=== PATIENT | male | born 1950 ===

== ENCOUNTER 2017-02-24 13:35 | Inpatient (IN) | payer MEDICARE, OTHER ==
[2017-02-24 14:14] VITALS: BMI 21.1
[2017-02-24] MEDS ORDERED: Sodium Chloride 0.9% 1,000 ML IV STA (14:41)
--- NOTE | 2017-02-24 14:49 | ED PDOC ---
Arrival/HPI - General Historian: Patient - History of Present Illness Time/Duration: 4-6 hours Symptom Onset: Gradual Symptom Course: Worsening Activities at Onset: Light Context: Home <Erick Hargrove - Last Filed: 02/24/17 18:34> <Truong,Prem - Last Filed: 02/24/17 21:51> - General Chief Complaint: Abdominal Pain Time Seen by Provider: 02/24/17 14:31 - History of Present Illness Narrative History of Present Illness (Text): 02/24/17 14:31 Antonio Ayers is a 66 year old male, whose past medical history includes hypertension, hyperlipidemia, and gastric reflux, who presents to the emergency department complaining of 1 week duration of worsening LLQ abdominal pain today. Patient describes his pain to be "achey," sharp and non-radiating. Patient also complains of experiencing constipation. Patient notes that his last bowel movement was 2 days ago. Patient notes that he has chronic lower back pain but it is not pertinent. Patient denies any rectal bleeding, testicular pain, urinary complaints, or any other complaints at this time. PMD: Dr. Nakia Denson (Erick Hargrove) Past Medical History - Provider Review Nursing Documentation Reviewed: Yes - Infectious Disease Hx of Infectious Diseases: None - Tetanus Immunization Tetanus Immunization: Unknown - Cardiac Hx Hypertension: Yes Hx Pacemaker: No - Neurological Hx Paralysis: No - Hematological/Oncological Hx Blood Transfusions: No Hx Blood Transfusion Reaction: No - Musculoskeletal/Rheumatological Hx Musculoskeletal Disorders: Yes - Gastrointestinal Hx Gastroesophageal Reflux: Yes - Psychiatric Hx Emotional Abuse: No Hx Physical Abuse: No Hx Substance Use: No - Past Surgical History Past Surgical History: No Previous - Anesthesia Hx Anesthesia: No Hx Anesthesia Reactions: No Hx Malignant Hyperthermia: No - Suicidal Assessment Feels Threatened In Home Enviroment: No <Erick Hargrove - Last Filed: 02/24/17 18:34> Family/Social History - Physician Review Nursing Documentation Reviewed: Yes Family/Social History: No Known Family HX Smoking Status: Light Smoker < 10 Cigarettes Daily Hx Alcohol Use: Yes (OCCASIONALLY) Frequency of alcohol use: Socially Hx Substance Use: No Hx Substance Use Treatment: No <Erick Hargrove - Last Filed: 02/24/17 18:34> Allergies/Home Meds <Erick Hargrove - Last Filed: 02/24/17 18:34> <Truong,Prem - Last Filed: 02/24/17 21:51> Allergies/Adverse Reactions: Allergies aspirin Adverse Reaction (Mild, Verified 04/24/16 11:08) NAUSEA Home Medications: Home Meds Medication Instructions Recorded Confirmed Omeprazole 40 mg PO DAILY 05/16/16 02/24/17 amLODIPine [Norvasc] 10 mg PO DAILY 08/22/16 02/24/17 Atorvastatin [Lipitor] 1 tab PO HS 02/24/17 02/24/17 Review of Systems - Physician Review All systems were reviewed & negative as marked: Yes - Review of Systems Constitutional: absent: Fevers, Night Sweats Eyes: absent: Vision Changes ENT: absent: Hearing Changes Respiratory: absent: SOB Cardiovascular: absent: Chest Pain Gastrointestinal: Abdominal Pain (LLQ) Genitourinary Male: absent: Dysuria Musculoskeletal: absent: Arthralgias Skin: absent: Rash Neurological: absent: Headache, Dizziness <Beena,Erick L - Last Filed: 02/24/17 18:34> Physical Exam Vital Signs Reviewed: Yes Temperature: Afebrile Blood Pressure: Hypertensive Pulse: Regular Respiratory Rate: Normal Appearance: Positive for: Well-Appearing, Non-Toxic, Comfortable Pain Distress: None Mental Status: Positive for: Alert and Oriented X 3 - Systems Exam Head: Present: Atraumatic, Normocephalic Pupils: Present: PERRL Extroacular Muscles: Present: EOMI Conjunctiva: Present: Normal Mouth: Present: Moist Mucous Membranes Neck: Present: Normal Range of Motion Respiratory/Chest: Present: Clear to Auscultation, Good Air Exchange. No: Respiratory Distress, Accessory Muscle Use Cardiovascular: Present: Regular Rate and Rhythm, Normal S1, S2. No: Murmurs Abdomen: Present: Tenderness (LLQ tenderness with guarding), Guarding. No: Rebound Back: Present: Normal Inspection Upper Extremity: Present: Normal Inspection. No: Cyanosis, Edema Lower Extremity: Present: Normal Inspection. No: Edema Neurological: Present: GCS=15, CN II-XII Intact, Speech Normal Skin: Present: Warm, Dry, Normal Color. No: Rashes Psychiatric: Present: Alert, Oriented x 3, Normal Insight, Normal Concentration <Beena,Erick L - Last Filed: 02/24/17 18:34> Medical Decision Making - Lab Interpretations I have reviewed the lab results: Yes <Erick Hargrove - Last Filed: 02/24/17 18:34> ED OBSERVATION Date of observation admission: 02/24/17 Time of observation admission: 14:45 <Erick Hargrove - Last Filed: 02/24/17 18:34> <Prem Guerin - Last Filed: 02/24/17 21:51> - Observation admission statement Patient is being placed in observation because:: Abdominal Pain (Erick Hargrove) - Goals of Observation Goals of observation are:: Continual reevaluation until symptoms improved or resolved. (Erick Hargrove) - Progress Note Progress Note: 02/24/17 14:51 Impression: 66 year old male complaining of 1 week duration of worsening LLQ abdominal pain today. Differential Diagnosis included but are not limited to: r/o Diverticulitis vs. Enteritis Plan: -- Abdomen and Pelvis CT with contrast -- Urinalysis -- Labs -- Toradol and IV fluids -- Reassess and disposition Prior Visits: Notes and results from previous visits were reviewed. Patient last seen in the ED on 10/01/13 for LLQ abdominal pain for a few days. Patient was discharged home. Progress Notes: 02/24/17 18:19 - CT was changed to PO contrast only. Patient still has pain. Morphine 2mg IV ordered. 02/24/17 19:00 Case to sign out to Dr. Guerin to f/u CT, reevaluate and disposition. (Erick Hargrove) 02/24/17 21:36 Case was endorsed from pending CT scan.Results noted significant for Diverticulitis CT Abd/Pelvis IMPRESSION: 1. There is slight wall thickening noted involving the descending/sigmoid colon suggestive of diverticulitis. There is slight pericolonic infiltration of fat. 2. Pancreas evaluation is limited. The distal pancreatic duct is slightly dilated Case was d/w .Request pt. 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 ( Prem Guerin) - Scribe Statement The provider has reviewed the documentation as recorded by the Scribe <Erick Hargrove - Last Filed: 02/24/17 18:34> <TruongPrem - Last Filed: 02/24/17 21:51> - Scribe Statement Nichole Leung Provider Scribe Attestation: All medical record entries made by the Scribe were at my direction and personally dictated by me. I have reviewed the chart and agree that the record accurately reflects my personal performance of the history, physical exam, medical decision making, and the department course for this patient. I have also personally directed, reviewed, and agree with the discharge instructions and disposition. (Erick Hargrove) Disposition/Present on Arrival - Present on Arrival Any Indicators Present on Arrival: No History of DVT/PE: No History of Uncontrolled Diabetes: No Urinary Catheter: No History of Decub. Ulcer: No History Surgical Site Infection Following: None - Disposition Have Diagnosis and Disposition been Completed?: No Disposition Time: 14:45 <Erick Hargrove - Last Filed: 02/24/17 18:34> - Present on Arrival Any Indicators Present on Arrival: No History of DVT/PE: No History of Uncontrolled Diabetes: No Urinary Catheter: No History of Decub. Ulcer: No History Surgical Site Infection Following: None - Disposition Have Diagnosis and Disposition been Completed?: Yes Disposition Time: 21:50 Patient Plan: Admission <Prem Guerin - Last Filed: 02/24/17 21:51> - Disposition Diagnosis: Abdominal pain, Diverticulitis Disposition: HOSPITALIZED Patient Problems: Current Active Problems Problem Status Onset Abdominal pain Acute Condition: STABLE
[2017-02-24 15:42] LABS: BASO # 0.02 K/mm3 (0.0-2.0); BASO % 0.3 % (0.0-3.0); EOS # 0.1 (0.0-0.7); EOS % 1.8 % (1.5-5.0); GRAN # 4.89 (1.4-6.5); GRAN % 68.9 % (50.0-68.0); HEMATOCRIT 31.8 % (42.0-52.0); LYMPH # 1.6 (1.2-3.4); LYMPH % 23.1 % (22.0-35.0); MEAN CELL VOLUME 88.3 fl (80.0-105.0); MEAN CORPUSCULAR HEMOGLOBIN 30.3 pg (25.0-35.0); MEAN CORPUSCULAR HGB CONC 34.3 g/dl (31.0-37.0); MEAN PLATELET VOLUME 10.2 fl (7.0-11.0); MONO # 0.4 (0.1-0.6); MONO % 5.9 % (1.0-6.0); WHITE BLOOD COUNT 7.1 10^3/ul (4.5-11.0)
[2017-02-24 15:47] LABS: URINE APPEARANCE SL CLOUDY (CLEAR); URINE BILIRUBIN NEGATIVE (NEGATIVE); URINE BLOOD TRACE-LYSED (NEGATIVE); URINE COLOR YELLOW (YELLOW); URINE GLUCOSE (UA) NEGATIVE (NEGATIVE); URINE KETONE NEGATIVE (NEGATIVE); URINE LEUKOCYTE ESTERASE NEGATIVE Leu/uL (NEGATIVE); URINE PROTEIN 30 mg/dL (<30 mg/dL); URINE UROBILINOGEN 0.2 E.U./dL (<1 E.U./dL)
[2017-02-24 15:49] LABS: URINE EPITHELIAL CELLS 0 - 2 /hpf (0-5); URINE RBC 0 - 2 /hpf (0-2); URINE WBC 0 - 2 /hpf (0-6)
[2017-02-24 15:58] LABS: ALB/GLOB RATIO 1.3 (1.1-1.8); BILIRUBIN,TOTAL 0.3 mg/dL (0.2-1.3); CALCIUM 9.3 mg/dL (8.4-10.5); TOTAL PROTEIN 6.9 g/dL (5.8-8.3)
[2017-02-24] MEDS ORDERED: Iohexol 240 (50 ml) ONE (17:11)
[2017-02-24] MEDS ORDERED: Morphine 2 mg/ml ISec IVP STA (18:18)
[2017-02-24] MEDS ORDERED: levoFLOXacin 750 mg in D5W 150 ML BAG IVPB ONE (21:41)
[2017-02-24] MEDS ORDERED: metroNIDAZOLE IV 500 mg/100 ml 500 MG/100 ML BAG IVPB STA (21:42)
--- NOTE | 2017-02-24 23:40 | CP.PCM.HP ---
<LUDY HARPER - Last Filed: 02/25/17 00:54> History of Present Illness - History of Present Illness History of Present Illness: Mr. Ayers is a 66 yo M with PMH gastric ulcers, GERD, HTN, HLD, CKD ( pt was told by MD once before but he doesn't f/u), psoriasis, arthritis, and BPH who presented to ED c/o LLQ abdominal pain x1 week. Also states that he has been constipated for 2 days (last BM this morning) and that he had 2 episodes of n/v 2 days ago. Pt states that he has had chronic issues with acid reflux and that he has had 2 EGD's in the past with Dr. Vasquez. States that this is the first time he has had this abdominal pain, which he describes as sharp, constant, non-radiating and rated it 8-9/10 at its worst and 7/10 currently; pain is not a/w food intake and is not improved with PPI medication. Denies fevers, chills, diarrhea, weakness. Pt states that he normally has 3 bowel movements a day but that he sometimes gets constipated. He had a colonoscopy 2 years ago with a polyp removal, and a procedure for hemorrhoid 2 years ago that was not successful and that he has pain with bowel movements. Denies any hematochezia or hematemesis. States that he has baseline chest pain a/w GERD and that his medication helps alleviate it. Pt also states that he feels incomplete bladder emptying and that he needs to urinate quite often, sometimes waking up 5 times a night to urinate. 12 point review of systems is otherwise negative except as mentioned above. PMH: as above PSH: hemorrhoidectomy Meds: Omeprazole 20mg, Norvasc 5mg, Atorvastatin 20mg Allergies: ASA (GI issues) SHx: 10pkyr smoker, occasional ETOH, denies drug use, lives with , retired FHx: Mom: HTN, Dad: none PMD: Sheldon Doherty Present on Admission - Present on Admission Any Indicators Present on Admission: No History of DVT/PE: No History of Uncontrolled Diabetes: No Review of Systems - Review of Systems All systems: reviewed and no additional remarkable complaints except (as per HPI ) Past Patient History - Infectious Disease Hx of Infectious Diseases: None - Tetanus Immunizations Tetanus Immunization: Unknown - Past Medical History & Family History Past Medical History?: Yes - Past Social History Smoking Status: Light Smoker < 10 Cigarettes Daily Alcohol: Occasional Drugs: Denies - CARDIAC Hx Cardiac Disorders: Yes Hx Hypertension: Yes Hx Pacemaker: No - PULMONARY Hx Respiratory Disorders: No - NEUROLOGICAL Hx Neurological Disorder: No Hx Paralysis: No - RENAL Hx Chronic Kidney Disease: Yes - HEMATOLOGICAL/ONCOLOGICAL Hx Blood Transfusions: No Hx Blood Transfusion Reaction: No - INTEGUMENTARY Hx Psoriasis: Yes - MUSCULOSKELETAL/RHEUMATOLOGICAL Hx Musculoskeletal Disorders: Yes Hx Arthritis: Yes - GASTROINTESTINAL Hx Gastrointestinal Disorders: Yes Hx Gastroesophageal Reflux: Yes Hx Hemorrhoids: Yes Hx Ulcer: Yes - GENITOURINARY/GYNECOLOGICAL Hx Genitourinary Disorders: Yes Hx Prostate Problems: Yes - PSYCHIATRIC Hx Emotional Abuse: No Hx Physical Abuse: No Hx Substance Use: No - ANESTHESIA Hx Anesthesia: No Hx Anesthesia Reactions: No Hx Malignant Hyperthermia: No Meds Allergies/Adverse Reactions: Allergies Allergy/AdvReac Type Severity Reaction Status Date / Time aspirin AdvReac Mild NAUSEA Verified 04/24/16 11:08 Physical Exam - Constitutional Appears: Well, Non-toxic, No Acute Distress - Head Exam Head Exam: ATRAUMATIC, NORMAL INSPECTION, NORMOCEPHALIC - Eye Exam Eye Exam: EOMI, Normal appearance, PERRL - ENT Exam ENT Exam: Mucous Membranes Moist - Neck Exam Neck exam: Positive for: Full Rom, Normal Inspection - Respiratory Exam Respiratory Exam: Clear to Auscultation Bilateral, NORMAL BREATHING PATTERN. absent: Accessory Muscle Use, Rales, Rhonchi, Wheezes, Respiratory Distress - Cardiovascular Exam Cardiovascular Exam: RRR, +S1, +S2. absent: Gallop, JVD, Rubs - GI/Abdominal Exam GI & Abdominal Exam: Hyperactive Bowel Sounds, Soft, Tenderness (LLQ and suprapubic). absent: Distended, Firm, Guarding, Rebound - Rectal Exam Rectal Exam: Hemorrhoids. absent: Black Stool, Bloody Stool, Fecal Impaction Additional comments: no stool or blood noted on LUIS, small hemorrhoid noted - Extremities Exam Extremities exam: Positive for: full ROM, normal inspection. Negative for: calf tenderness, pedal edema, tenderness - Back Exam Back exam: NORMAL INSPECTION. absent: tenderness - Neurological Exam Neurological exam: Alert, Oriented x3 - Psychiatric Exam Psychiatric exam: Normal Affect, Normal Mood - Skin Skin Exam: Normal Color, Warm Additional comments: psoriatic scaly lesions noted on hands sun-exposure burn/rash noted on supra-clavicular region Results - Vital Signs Recent Vital Signs: Last Vital Signs Temp 98.7 F 02/24/17 14:13 Pulse 63 02/24/17 22:35 Resp 16 02/24/17 22:35 BP 135/66 02/24/17 22:35 Pulse Ox 98 02/24/17 22:35 - Labs Result Diagrams: 02/24/17 15:26 02/24/17 15:26 Assessment & Plan - Assessment and Plan (Free Text) Assessment: Mr. yAers is a 66yo M with PMH gastric ulcers, GERD, HTN, HLD, CKD, psoriasis, arthritis, and BPH who presented to ED c/o LLQ abdominal pain x1 week , constipation for 2 days and n/v 2 days ago Plan: 1. LLQ Pain likely 2/2 divertiulitis vs constipation - Pt transferred to med-surg floor for monitoring - CT abd and pelvis w/ PO contrast showed slight wall thickening noted involving the descending/sigmoid colon suggestive of diverticulitis. There is slight pericolonic infiltration of fat. - pt afebrile and no leukocytosis - pain mgmt: received Toradol and Morphine in ED; cont Motrin PRN - GI consulted, recs appreciated - surgery consulted, recs appreciated - NS @ 150cc - received Levaquin and Flagyl in ED; cont Flagyl and Rocephin - pt kept NPO, advance to liquids AM if tolerated 2. Suprapubic pain likely 2/2 urinary retention 2/2 BPH - bladder scan ordered - urinary straight cath PRN ordered - start Flomax 3. HTN - cont home dose of Norvasc - monitor vitals 4. HLD - lipid panel ordered - cont home dose of Atorvastatin 5. CKD - Cr 1.8 (stable baseline for pt since 2013) - consider renal consult 6. Anemia likely 2/2 chronic dz 2/2 CKD - Hgb 10.9 (similar to baseline) - Heme occult blood ordered NPO PTX/SCDs Patient was evaluated and d/w attending, Dr. Nilson Harper PGY1 - Date & Time Date: 02/25/17 Time: 00:00 <Barry Devine - Last Filed: 02/25/17 06:01> Results - Vital Signs Recent Vital Signs: Last Vital Signs Temp 98.0 F 02/25/17 01:15 Pulse 65 02/25/17 01:15 Resp 20 02/25/17 01:15 BP 121/63 02/25/17 01:15 Pulse Ox 98 02/24/17 22:35 - Labs Result Diagrams: 02/24/17 15:26 02/24/17 15:26 Attending/Attestation - Attestation I have personally seen and examined this patient.: Yes I have fully participated in the care of the patient.: Yes I have reviewed all pertinent clinical information: Yes Notes (Text): 02/25/17 05:49 Patient was seen when he was in bed # 371-02. Agree with history , physical examination, assessment and plan. Following are impressions. LLQ pain. Acute diverticulitis.. Anemia. Renal insufficiency. Allergy to ASA. HTN. HLD. GERD. Constipation. Hx of Elevated PSA. Suprapubic pain. Hx of hemorrhoidectomy. Smoker. Uses alcohol occasionally. Hx epistaxis. Hx dry eyes. Hx refraction error-Bifocal eye glasses. Hx tinitus. Hx Arthritis. Hx BPH. Hx headaches.
[2017-02-25] MEDS ORDERED: levoFLOXacin 750 mg in D5W 750 MG/150 ML BAG IVPB STA (00:05)
[2017-02-25] MEDS: Pantoprazole 40 mg EC Tab PO SCH ×2 (05:45→17:52)
[2017-02-25] MEDS: metroNIDAZOLE IV 500 mg/100 ml 500 MG/100 ML BAG IVPB SCH ×3 (05:47→22:04)
--- NOTE | 2017-02-25 06:07 | CP.PCM.CON ---
<Paradise Garcia - Last Filed: 02/25/17 06:49> History of Present Illness - History of Present Illness History of Present Illness: General Surgery Dr. Archibald 66 y/o M w/ PMHx of HTN, CKD, HLD presents to the ED c/o LLQ abd pain x1wk. Pt reports N/V x couple of weeks, NBNB, with LLQ pain worsening over the last 1- 2weeks. Pain nonradiating, made worse w/ BM. Pt denies recent travel or sick contacts. Pt reports decreased appetite and 10lb weight loss over the last couple of months. Pt admits to recent constipation, denies diarrhea. Pt denies urinary frequency, hesitancy, urgency, dysuria. Pt denies MONAE, lightheadedness, dizziness, F/C, CP, SOB, numbness/tingling. PMHx: see above, GERD, BPH, Psoriasis Meds: reviewed in chart Allergies: ASA PSHx: hemorrhoidectomy SHx: 10py smoker, occasional ETOH, denies drug use, FHx: noncontributory Review of Systems - Review of Systems All systems: reviewed and no additional remarkable complaints except (see HPI) Past Patient History - Infectious Disease Hx of Infectious Diseases: None - Tetanus Immunizations Tetanus Immunization: Unknown - Past Medical History & Family History Past Medical History?: Yes - Past Social History Smoking Status: Light Smoker < 10 Cigarettes Daily - CARDIAC Hx Cardiac Disorders: Yes Hx Hypertension: Yes Hx Pacemaker: No - PULMONARY Hx Respiratory Disorders: No - NEUROLOGICAL Hx Neurological Disorder: No - RENAL Hx Chronic Kidney Disease: No - HEMATOLOGICAL/ONCOLOGICAL Hx Blood Transfusions: No Hx Blood Transfusion Reaction: No - INTEGUMENTARY Hx Psoriasis: Yes - MUSCULOSKELETAL/RHEUMATOLOGICAL Hx Falls: No - GASTROINTESTINAL Hx Gastrointestinal Disorders: Yes Hx Gastroesophageal Reflux: Yes Hx Ulcer: Yes - GENITOURINARY/GYNECOLOGICAL Hx Genitourinary Disorders: Yes Hx Prostate Problems: Yes - PSYCHIATRIC Hx Substance Use: No - SURGICAL HISTORY Hx Surgeries: Yes - ANESTHESIA Hx Anesthesia: No Hx Anesthesia Reactions: No Hx Malignant Hyperthermia: No Meds Allergies/Adverse Reactions: Allergies Allergy/AdvReac Type Severity Reaction Status Date / Time aspirin AdvReac Mild NAUSEA Verified 04/24/16 11:08 - Medications Medications: Current Medications Amlodipine Besylate (Norvasc) 10 mg PO DAILY [facility] Atorvastatin Calcium (Lipitor) 20 mg PO HS [facility] Last Admin: 02/25/17 00:33 Dose: 20 mg Sodium Chloride (Sodium Chloride 0.9%) 1,000 mls @ 150 mls/hr IV .Q6H40M [facility] Last Admin: 02/25/17 00:00 Dose: 150 mls/hr Metronidazole (Flagyl) 500 mg in 100 mls @ 100 mls/hr IVPB Q8 [facility] PRN Reason: Protocol Last Admin: 02/25/17 05:47 Dose: 100 mls/hr Ceftriaxone Sodium (Rocephin 1 Gram Ivpb) 1 gm in 100 mls @ 100 mls/hr IVPB DAILY [facility] PRN Reason: Protocol Pantoprazole Sodium (Protonix Ec Tab) 40 mg PO 0600,1600 [facility] Last Admin: 02/25/17 05:45 Dose: 40 mg Pneumococcal Polyvalent Vaccine (Pneumovax 23 Vaccine) 0.5 ml IM .ONCE ONE Stop: 02/27/17 10:01 Tamsulosin HCl (Flomax) 0.4 mg PO DAILY [facility] Physical Exam - Constitutional Appears: Non-toxic, No Acute Distress - Head Exam Head Exam: NORMAL INSPECTION - Eye Exam Eye Exam: Normal appearance - ENT Exam ENT Exam: Mucous Membranes Moist - Respiratory Exam Respiratory Exam: NORMAL BREATHING PATTERN. absent: Accessory Muscle Use, Respiratory Distress - Cardiovascular Exam Cardiovascular Exam: REGULAR RHYTHM. absent: Bradycardia, Tachycardia - GI/Abdominal Exam GI & Abdominal Exam: Guarding (voluntary), Soft, Tenderness (TTP LLQ>suprapubic) . absent: Distended, Firm, Rebound, Rigid - Extremities Exam Extremities exam: Positive for: normal inspection - Neurological Exam Neurological exam: Alert, Oriented x3 - Psychiatric Exam Psychiatric exam: Normal Affect, Normal Mood - Skin Skin Exam: Dry, Intact, Normal Color, Warm Results - Vital Signs Recent Vital Signs: Last Vital Signs Temp 98.0 F 02/25/17 01:15 Pulse 65 02/25/17 01:15 Resp 20 02/25/17 01:15 BP 121/63 02/25/17 01:15 Pulse Ox 98 02/24/17 22:35 - Labs Result Diagrams: 02/24/17 15:26 02/24/17 15:26 - Imaging and Cardiology CT scan - abdomen Status: Image reviewed by me, Report reviewed by me Assessment & Plan - Assessment and Plan (Free Text) Assessment: 66 y/o M w/ diverticulitis - NPO, IVF - pain management - anti-emetic - GI consult --> known pt of Dr. Vasquez - cont IV abx - cont conservative medical management Pt discussed w/ Dr. Dragan Garcia DO PGY2 <Elfego Archibald - Last Filed: 02/26/17 19:21> Meds - Medications Medications: Current Medications Acetaminophen (Tylenol 325mg Tab) 650 mg PO Q6H PRN PRN Reason: Pain, moderate (4-7) Last Admin: 02/26/17 10:08 Dose: 650 mg Amlodipine Besylate (Norvasc) 10 mg PO DAILY [facility] Last Admin: 02/26/17 09:05 Dose: 10 mg Atorvastatin Calcium (Lipitor) 20 mg PO HS [facility] Last Admin: 02/25/17 22:04 Dose: 20 mg Sodium Chloride (Sodium Chloride 0.9%) 1,000 mls @ 150 mls/hr IV .Q6H40M [facility] Last Admin: 02/26/17 08:05 Dose: 150 mls/hr Metronidazole (Flagyl) 500 mg in 100 mls @ 100 mls/hr IVPB Q8 [facility] PRN Reason: Protocol Last Admin: 02/26/17 14:21 Dose: 100 mls/hr Ceftriaxone Sodium (Rocephin 1 Gram Ivpb) 1 gm in 100 mls @ 100 mls/hr IVPB DAILY [facility] PRN Reason: Protocol Last Admin: 02/26/17 09:05 Dose: 100 mls/hr Pantoprazole Sodium (Protonix Ec Tab) 40 mg PO 0600,1600 [facility] Last Admin: 02/26/17 16:26 Dose: 40 mg Pneumococcal Polyvalent Vaccine (Pneumovax 23 Vaccine) 0.5 ml IM .ONCE ONE Stop: 02/27/17 10:01 Polyethylene Glycol (Miralax) 17 gm PO BID [facility] Last Admin: 02/26/17 17:23 Dose: 17 gm Tamsulosin HCl (Flomax) 0.4 mg PO DAILY [facility] Last Admin: 02/26/17 09:05 Dose: 0.4 mg Results - Vital Signs Recent Vital Signs: Last Vital Signs Temp 98.6 F 02/26/17 16:00 Pulse 72 02/26/17 16:00 Resp 18 02/26/17 16:00 BP 121/67 02/26/17 16:00 Pulse Ox 98 02/26/17 16:00 - Labs Result Diagrams: 02/26/17 09:30 02/26/17 09:30 Labs: Laboratory Results - last 24 hr 02/26/17 02/26/17 09:30 09:30 WBC 5.2 RBC 3.52 Hgb 10.3 L Hct 31.3 L MCV 88.9 MCH 29.3 MCHC 32.9 RDW 13.1 Plt Count 184 MPV 10.1 Gran % 71.0 H Lymph % (Auto) 21.7 L [place] % (Auto) 5.0 Eos % (Auto) 2.1 Baso % (Auto) 0.2 Gran # 3.67 Lymph # 1.1 L [place] # 0.3 Eos # 0.1 Baso # 0.01 Sodium 139 Potassium 4.7 Chloride 107 Carbon Dioxide 23 Anion Gap 14 BUN 14 Creatinine 1.5 H Est GFR ( Amer) 56 Est GFR (Non-Af Amer) 47 Random Glucose 191 H Calcium 9.2 Total Bilirubin 0.4 AST 25 ALT 32 Alkaline Phosphatase 106 Total Protein 6.2 Albumin 3.5 Globulin 2.8 Albumin/Globulin Ratio 1.3 Attending/Attestation - Attestation I have personally seen and examined this patient.: Yes I have fully participated in the care of the patient.: Yes I have reviewed all pertinent clinical information: Yes Notes (Text): 02/26/17 19:20 Pt was seen and examined at bedside Agree with above note and assessment Pt with Diverticulitis Labs and radiology reviewed Clear liquid diet CI consult C/w IV antibiotics Plan d.w pt in detail Risk and benefit explained in detail.
[2017-02-25 07:41] LABS: BASO # 0.02 K/mm3 (0.0-2.0); BASO % 0.4 % (0.0-3.0); EOS # 0.2 (0.0-0.7); EOS % 3.7 % (1.5-5.0); GRAN # 3.59 (1.4-6.5); GRAN % 63.1 % (50.0-68.0); HEMATOCRIT 31.9 % (42.0-52.0); LYMPH # 1.4 (1.2-3.4); LYMPH % 24.5 % (22.0-35.0); MEAN CELL VOLUME 87.9 fl (80.0-105.0); MEAN CORPUSCULAR HEMOGLOBIN 30.3 pg (25.0-35.0); MEAN CORPUSCULAR HGB CONC 34.5 g/dl (31.0-37.0); MEAN PLATELET VOLUME 10.2 fl (7.0-11.0); MONO # 0.5 (0.1-0.6); MONO % 8.3 % (1.0-6.0); RED CELL DISTRIBUTION WIDTH 13.2 % (11.5-14.5); WHITE BLOOD COUNT 5.7 10^3/ul (4.5-11.0)
--- NOTE | 2017-02-25 07:50 | CT ---
PROCEDURE: CT Abdomen and Pelvis with contrast HISTORY: Left lower quadrant abdominal pain r/o diverticulitis COMPARISON: 09/30/2013. TECHNIQUE: CT scan of the abdomen and pelvis was performed without administration of intravenous contrast. Oral contrast was not administered. Coronal and sagittal reformatted images were obtained. Radiation dose: Total exam DLP = 246.41 mGy-cm. This CT exam was performed using one or more of the following dose reduction techniques: Automated exposure control, adjustment of the mA and/or kV according to patient size, and/or use of iterative reconstruction technique. FINDINGS: LOWER THORAX: There is linear atelectasis/ scarring in the lung bases. LIVER: The liver is normal in size. There are few punctate calcifications in the liver. No gross lesion or ductal dilatation. GALLBLADDER AND BILE DUCTS: There are no calcified gallstones. There is a probable calcification in the fundus of the gallbladder. PANCREAS: The pancreas is normal in size. No ductal dilatation or calcifications. SPLEEN: The spleen is normal in size. ADRENALS: Both adrenal glands are normal in size without discrete nodule. KIDNEYS AND URETERS: The right kidney is small in size. There is age 5 mm high attenuation lesion in the right upper pole stable since the prior examination and likely a hemorrhagic cyst. There are simple cysts in both kidneys, the largest in the left upper pole measures 4.6 cm. No hydronephrosis or nephrolithiasis. VASCULATURE: There are early atherosclerotic aortoiliac calcifications. No aortic aneurysm. BOWEL: The small bowel loops are normal in caliber. There is sigmoid and left colonic diverticulosis. There is apparent mild mural thickening in the distal descending and proximal sigmoid colon with mild pericolonic inflammatory changes. . No bowel dilatation or obstruction. APPENDIX: Normal appendix. PERITONEUM: No free fluid. No free air. LYMPH NODES: No enlarged lymph nodes. BLADDER: Grossly normal in appearance. REPRODUCTIVE: The prostate gland is normal in size. BONES: No acute fracture. Diffuse bone demineralization and mild multilevel degenerative disc disease. OTHER FINDINGS: None. IMPRESSION: Findings are most compatible with acute segmental diverticulitis involving the distal descending and proximal sigmoid colon. No perforation or abscess. A preliminary report was provided by [employer].
[2017-02-25 07:54] LABS: ALB/GLOB RATIO 1.2 (1.1-1.8); BILIRUBIN,TOTAL 0.3 mg/dL (0.2-1.3); TOTAL PROTEIN 6.5 g/dL (5.8-8.3)
[2017-02-25] MEDS: cefTRIAXone 1 gm 1 GM/100 ML BAG IVPB SCH (09:42)
[2017-02-25] MEDS: Sodium Chloride 0.9% 1,000 ML IV SCH ×2 (09:43)
--- NOTE | 2017-02-25 12:07 | CP.PCM.CON ---
<Shanon Rea - Last Filed: 02/25/17 12:05> History of Present Illness - History of Present Illness History of Present Illness: Seen and examined at the bedside earlier today. The chart was reviewed. Request for consultation is for diverticulitis.. HPI: This is a 66-year-old male with a past medical history of gastric ulcers, GERD, colon polyps, hypertension, and chronic kidney disease came to the emergency room with complaints of left lower quadrant abdominal pain 5 days. The patient also complained of constipation 2 days. Patient states that he normally moves his bowels regular. Prior to this patient complained of vomiting. He denies any contributing factors such as dietary intake, sick contacts. Patient reports that abdominal pain as being sharp, constant but nonradiating. His last bowel movement was yesterday but small amount, denies any melena or bright red blood per rectum. His last colonoscopy was August 2013 found to have a hyperplastic rectal polyp. He did have an endoscopy in July 2016 found to have this was for history of chronic ulcer found to have gastritis and nodularity of the gastric body. His gastric biopsies were negative for H. pylori. On admission he had a CT scan of abdomen and pelvis with only IV contrast and found to have distal descending and proximal sigmoid thickening suggestive of diverticulitis no abscess or perforation. This morning the patient states his abdominal pain has improved but attempting to have a BM but unsuccessful. He also reports that he lost at least 11 pounds in a few months. Past medical history: As stated above gastric ulcers, GERD, colon polyps, hypertension, hyperlipidemia, chronic kidney disease, arthritis, BPH, and psoriasis. Surgical history: EGD was 2016, colonoscopy was August/2013, hemorrhoidectomy Allergies: Aspirin Medications: Reviewed as per MAR Social history: Positive for smoking, occasional EH, denies substance abuse. Family history noncontributory at this time Review of systems essentially positive finding see HPI Past Patient History - Infectious Disease Hx of Infectious Diseases: None - Tetanus Immunizations Tetanus Immunization: Unknown - Past Medical History & Family History Past Medical History?: Yes - Past Social History Smoking Status: Light Smoker < 10 Cigarettes Daily - CARDIAC Hx Cardiac Disorders: Yes Hx Hypertension: Yes Hx Pacemaker: No - PULMONARY Hx Respiratory Disorders: No - NEUROLOGICAL Hx Neurological Disorder: No - RENAL Hx Chronic Kidney Disease: No - HEMATOLOGICAL/ONCOLOGICAL Hx Blood Transfusions: No Hx Blood Transfusion Reaction: No - INTEGUMENTARY Hx Psoriasis: Yes - MUSCULOSKELETAL/RHEUMATOLOGICAL Hx Falls: No - GASTROINTESTINAL Hx Gastrointestinal Disorders: Yes Hx Gastroesophageal Reflux: Yes Hx Ulcer: Yes - GENITOURINARY/GYNECOLOGICAL Hx Genitourinary Disorders: Yes Hx Prostate Problems: Yes - PSYCHIATRIC Hx Substance Use: No - SURGICAL HISTORY Hx Surgeries: Yes - ANESTHESIA Hx Anesthesia: No Hx Anesthesia Reactions: No Hx Malignant Hyperthermia: No Meds Allergies/Adverse Reactions: Allergies Allergy/AdvReac Type Severity Reaction Status Date / Time aspirin AdvReac Mild NAUSEA Verified 04/24/16 11:08 - Medications Medications: Current Medications Amlodipine Besylate (Norvasc) 10 mg PO DAILY [facility] Last Admin: 02/25/17 09:42 Dose: 10 mg Atorvastatin Calcium (Lipitor) 20 mg PO HS [facility] Last Admin: 02/25/17 00:33 Dose: 20 mg Sodium Chloride (Sodium Chloride 0.9%) 1,000 mls @ 150 mls/hr IV .Q6H40M [facility] Last Admin: 02/25/17 09:43 Dose: 150 mls/hr Metronidazole (Flagyl) 500 mg in 100 mls @ 100 mls/hr IVPB Q8 [facility] PRN Reason: Protocol Last Admin: 02/25/17 05:47 Dose: 100 mls/hr Ceftriaxone Sodium (Rocephin 1 Gram Ivpb) 1 gm in 100 mls @ 100 mls/hr IVPB DAILY [facility] PRN Reason: Protocol Last Admin: 02/25/17 09:42 Dose: 100 mls/hr Pantoprazole Sodium (Protonix Ec Tab) 40 mg PO 0600,1600 [facility] Last Admin: 02/25/17 05:45 Dose: 40 mg Pneumococcal Polyvalent Vaccine (Pneumovax 23 Vaccine) 0.5 ml IM .ONCE ONE Stop: 02/27/17 10:01 Tamsulosin HCl (Flomax) 0.4 mg PO DAILY [facility] Last Admin: 02/25/17 09:42 Dose: 0.4 mg Physical Exam - Constitutional Appears: No Acute Distress - Head Exam Head Exam: NORMOCEPHALIC - Eye Exam Eye Exam: Normal appearance. absent: Scleral icterus - ENT Exam ENT Exam: Mucous Membranes Moist - Neck Exam Neck exam: Positive for: Normal Inspection - Respiratory Exam Respiratory Exam: Clear to Auscultation Bilateral, NORMAL BREATHING PATTERN. absent: Respiratory Distress - Cardiovascular Exam Cardiovascular Exam: +S1, +S2 - GI/Abdominal Exam GI & Abdominal Exam: Organomegaly, Soft, Tenderness (LLQ). absent: Distended, Guarding, Normal Bowel Sounds, Rebound - Extremities Exam Extremities exam: Positive for: pedal pulses present. Negative for: calf tenderness, pedal edema - Neurological Exam Neurological exam: Alert, Oriented x3 - Skin Skin Exam: Dry, Warm Results - Vital Signs Recent Vital Signs: Last Vital Signs Temp 98.2 F 02/25/17 08:24 Pulse 64 02/25/17 08:24 Resp 18 02/25/17 08:24 BP 116/64 02/25/17 09:42 Pulse Ox 98 02/25/17 08:24 - Labs Result Diagrams: 02/25/17 07:00 02/25/17 07:00 Labs: Laboratory Results - last 24 hr 02/25/17 02/25/17 07:00 07:00 WBC 5.7 RBC 3.63 Hgb 11.0 L Hct 31.9 L MCV 87.9 MCH 30.3 MCHC 34.5 RDW 13.2 Plt Count 179 MPV 10.2 Gran % 63.1 Lymph % (Auto) 24.5 [place] % (Auto) 8.3 H Eos % (Auto) 3.7 Baso % (Auto) 0.4 Gran # 3.59 Lymph # 1.4 [place] # 0.5 Eos # 0.2 Baso # 0.02 Sodium 142 Potassium 5.0 Chloride 111 H Carbon Dioxide 23 Anion Gap 13 BUN 21 Creatinine 1.6 H Est GFR ( Amer) 52 Est GFR (Non-Af Amer) 43 Random Glucose 86 Calcium 9.0 Total Bilirubin 0.3 AST 26 ALT 30 Alkaline Phosphatase 108 Total Protein 6.5 Albumin 3.6 Globulin 2.9 Albumin/Globulin Ratio 1.2 Triglycerides 82 Cholesterol 145 LDL Cholesterol Direct 78 HDL Cholesterol 45 Assessment & Plan - Assessment and Plan (Free Text) Assessment: Assessment: Acute diverticulitis History of colon polyp GERD Chronic kidney disease Hypertension BPH Plan: Continue IV antibiotics: rocephin & flagyl Start clear liquid diet, advanced as tolerated, will FU Continue PPI Monitor electrolytes Surgical evaluation May benefit from elective outpatient colonoscopy after resolution of diverticulitis 6-8 weeks. Follow up in outpatient office. Thank you for this consult and for allowing us to participate in your patient's care. Will make further recommendations based on clinical course. Seen and discussed with Dr. Vasquez. <Vicky Vasquez V - Last Filed: 02/26/17 00:41> Meds - Medications Medications: Current Medications Acetaminophen (Tylenol 325mg Tab) 650 mg PO Q6H PRN PRN Reason: Pain, moderate (4-7) Last Admin: 02/25/17 22:21 Dose: 650 mg Amlodipine Besylate (Norvasc) 10 mg PO DAILY [facility] Last Admin: 02/25/17 09:42 Dose: 10 mg Atorvastatin Calcium (Lipitor) 20 mg PO HS [facility] Last Admin: 02/25/17 22:04 Dose: 20 mg Sodium Chloride (Sodium Chloride 0.9%) 1,000 mls @ 150 mls/hr IV .Q6H40M [facility] Last Admin: 02/25/17 09:43 Dose: 150 mls/hr Metronidazole (Flagyl) 500 mg in 100 mls @ 100 mls/hr IVPB Q8 [facility] PRN Reason: Protocol Last Admin: 02/25/17 22:04 Dose: 100 mls/hr Ceftriaxone Sodium (Rocephin 1 Gram Ivpb) 1 gm in 100 mls @ 100 mls/hr IVPB DAILY [facility] PRN Reason: Protocol Last Admin: 02/25/17 09:42 Dose: 100 mls/hr Pantoprazole Sodium (Protonix Ec Tab) 40 mg PO 0600,1600 [facility] Last Admin: 02/25/17 17:52 Dose: 40 mg Pneumococcal Polyvalent Vaccine (Pneumovax 23 Vaccine) 0.5 ml IM .ONCE ONE Stop: 02/27/17 10:01 Tamsulosin HCl (Flomax) 0.4 mg PO DAILY [facility] Last Admin: 02/25/17 09:42 Dose: 0.4 mg Results - Vital Signs Recent Vital Signs: Last Vital Signs Temp 98.3 F 02/25/17 15:57 Pulse 66 02/25/17 15:57 Resp 20 02/25/17 15:57 BP 105/62 02/25/17 15:57 Pulse Ox 98 02/25/17 15:57 - Labs Result Diagrams: 02/25/17 07:00 02/25/17 07:00 Labs: Laboratory Results - last 24 hr 02/25/17 02/25/17 07:00 07:00 WBC 5.7 RBC 3.63 Hgb 11.0 L Hct 31.9 L MCV 87.9 MCH 30.3 MCHC 34.5 RDW 13.2 Plt Count 179 MPV 10.2 Gran % 63.1 Lymph % (Auto) 24.5 [place] % (Auto) 8.3 H Eos % (Auto) 3.7 Baso % (Auto) 0.4 Gran # 3.59 Lymph # 1.4 [place] # 0.5 Eos # 0.2 Baso # 0.02 Sodium 142 Potassium 5.0 Chloride 111 H Carbon Dioxide 23 Anion Gap 13 BUN 21 Creatinine 1.6 H Est GFR ( Amer) 52 Est GFR (Non-Af Amer) 43 Random Glucose 86 Calcium 9.0 Total Bilirubin 0.3 AST 26 ALT 30 Alkaline Phosphatase 108 Total Protein 6.5 Albumin 3.6 Globulin 2.9 Albumin/Globulin Ratio 1.2 Triglycerides 82 Cholesterol 145 LDL Cholesterol Direct 78 HDL Cholesterol 45 Attending/Attestation - Attestation I have personally seen and examined this patient.: Yes I have fully participated in the care of the patient.: Yes I have reviewed all pertinent clinical information: Yes Notes (Text): This patient was seen and evaluated earlier. This is an addendum to GI consultation report dictated by Shanon Padron APN. this patient with a history ofcolonic polyp, diverticulosis admitted with the constipation and abdominal pain mainly in the left side of the abdomen. CT scan was reviewed and shows a large amount of stool in the right colon and transverse colon area. There is a short segment oo mural thickening in the proximal sigmoid descending colon area with some inflammatory changes.. Multiple diverticula seen. On examination patient has minimal tenderness on deep palpation in the left lower quadrant area. There is no rebound or guarding. Impression Diverticulitis versus segmental colitis versus neoplasia Constipation. CT revealed a large amount of stool in the proximal colon would recommend A liquid diet and slowly and once diet 2. Continue the antibiotics completed 7-10 days 3. Start MiraLAX twice daily until he moves his bowels 4. Low residue diet 5. The elective colonoscopic evaluation The findings were discussed with the patient also patient's son was at bedside. Patient is due to have a colonoscopy as an outpatient. However we would to defer it for another 3-4 weeks advance the diet as patient is tolerating initially low residue diet and then change it to high-fiber diet for 3 weeks. Patient was advised to continue the MiraLAX on a when necessary basis to regulate his bowel the case was discussed with the resident
--- NOTE | 2017-02-25 15:35 | CP.PCM.PN ---
<Que Benz - Last Filed: 02/25/17 17:28> Subjective - Date & Time of Evaluation Date of Evaluation: 02/18/17 Time of Evaluation: 10:32 - Subjective Subjective: This is a 66 yr. old male seen at bedside resting comfortably. The patient reports feeling better however has yet to have a bowel movement today. The patient denies any nausea, vomiting, lightheadeness, dizziness, chest pain, shortness of breath, pain upon urination, sore throat, changes in vision, chills , cough or any other problems. Objective - Vital Signs/Intake and Output Vital Signs (last 24 hours): Temp Pulse Resp BP Pulse Ox 98.2 F 64 18 116/64 98 02/25/17 08:24 02/25/17 08:24 02/25/17 08:24 02/25/17 09:42 02/25/17 08:24 Intake and Output: 02/25/17 02/25/17 06:59 18:59 Intake Total 0 Balance 0 - Medications Medications: Current Medications Amlodipine Besylate (Norvasc) 10 mg PO DAILY [facility] Last Admin: 02/25/17 09:42 Dose: 10 mg Atorvastatin Calcium (Lipitor) 20 mg PO HS [facility] Last Admin: 02/25/17 00:33 Dose: 20 mg Sodium Chloride (Sodium Chloride 0.9%) 1,000 mls @ 150 mls/hr IV .Q6H40M [facility] Last Admin: 02/25/17 09:43 Dose: 150 mls/hr Metronidazole (Flagyl) 500 mg in 100 mls @ 100 mls/hr IVPB Q8 [facility] PRN Reason: Protocol Last Admin: 02/25/17 14:58 Dose: 100 mls/hr Ceftriaxone Sodium (Rocephin 1 Gram Ivpb) 1 gm in 100 mls @ 100 mls/hr IVPB DAILY [facility] PRN Reason: Protocol Last Admin: 02/25/17 09:42 Dose: 100 mls/hr Pantoprazole Sodium (Protonix Ec Tab) 40 mg PO 0600,1600 [facility] Last Admin: 02/25/17 05:45 Dose: 40 mg Pneumococcal Polyvalent Vaccine (Pneumovax 23 Vaccine) 0.5 ml IM .ONCE ONE Stop: 02/27/17 10:01 Tamsulosin HCl (Flomax) 0.4 mg PO DAILY [facility] Last Admin: 02/25/17 09:42 Dose: 0.4 mg - Labs Labs: 02/25/17 07:00 02/25/17 07:00 - Head Exam Head Exam: ATRAUMATIC, NORMOCEPHALIC - Eye Exam Eye Exam: EOMI, Normal appearance, PERRL. absent: Periorbital tenderness Pupil Exam: NORMAL ACCOMODATION, PERRL. absent: Miosis - ENT Exam ENT Exam: Mucous Membranes Moist, Normal Exam, Normal Oropharynx - Neck Exam Neck Exam: Full ROM, Normal Inspection - Respiratory Exam Respiratory Exam: Clear to Ausculation Bilateral, NORMAL BREATHING PATTERN. absent: Accessory Muscle Use, Chest Wall Tenderness, Decreased Breath Sounds, Prolonged Expiratory Phase - Cardiovascular Exam Cardiovascular Exam: REGULAR RHYTHM, +S1, +S2. absent: Bradycardia, Tachycardia - GI/Abdominal Exam GI & Abdominal Exam: Tenderness (Tenderness noted on the LLQ upon palpation.), Normal Bowel Sounds - Extremities Exam Extremities Exam: Full ROM, Normal Inspection - Psychiatric Exam Psychiatric exam: Normal Affect, Normal Mood - Skin Skin Exam: Dry, Intact. absent: Rash, Urticaria Assessment and Plan (1) Diverticulitis Assessment & Plan: C/w with IVF fluids Keep NPO. Re-evaluate to clear liquid diet tomorrow morning. Status: Acute (2) Abdominal pain Assessment & Plan: C/W Flagyl and Rocephin for the segmental diverticulitis. Spoke with Dr. Vasquez and he is now on a clear liquid diet and we will re- evaluate in the morning and discharge tomorrow if continued improvement, per Dr. Vasquez. C/w with IV fluids. Status: Acute - Assessment and Plan (Free Text) Assessment: HTN -C/W amlodipine HLD -C/W Lipitor <Dior MC,[place] - Last Filed: 03/01/17 10:26> Objective - Vital Signs/Intake and Output Vital Signs (last 24 hours): Temp Pulse Resp BP Pulse Ox 98.6 F 63 20 116/64 96 02/27/17 08:25 02/27/17 08:25 02/27/17 08:25 02/27/17 09:44 02/27/17 08:25 - Labs Labs: 02/27/17 05:50 02/27/17 05:50 Attending/Attestation - Attestation I have personally seen and examined this patient.: Yes I have fully participated in the care of the patient.: Yes I have reviewed all pertinent clinical information, including history, physical exam and plan: Yes Notes (Text): 03/01/17 10:23 Patient was seen and examined with emergency medical service manager. Agreed with resident assessment and plan. 66 M with sigmoid diverticulitis, He is tolerating clear liquid diet, still has left lower quadrant tenderness but abdominal pain is much more improved.We will advance to soft diet this evening, and will monitor.We will continue IV antibiotics.GI evaluation is appreciated. Management plan was discussed in detail with patient Education was provided.
[2017-02-26] MEDS: metroNIDAZOLE IV 500 mg/100 ml 500 MG/100 ML BAG IVPB SCH ×3 (06:27→21:06)
[2017-02-26] MEDS: Pantoprazole 40 mg EC Tab PO SCH ×2 (06:28→16:26)
--- NOTE | 2017-02-26 07:49 | CP.PCM.PN ---
<Paradise Rubalcava - Last Filed: 02/26/17 14:07> Subjective - Date & Time of Evaluation Date of Evaluation: 02/26/17 Time of Evaluation: 07:49 - Subjective Subjective: General Surgery progress note for Dr. Archibald PT S&E at bedside. NAEON. Patient denies any complaints. tolerating pain well. Objective - Vital Signs/Intake and Output Vital Signs (last 24 hours): Temp Pulse Resp BP Pulse Ox 98.3 F 66 20 105/62 98 02/25/17 15:57 02/25/17 15:57 02/25/17 15:57 02/25/17 15:57 02/25/17 15:57 Intake and Output: 02/26/17 02/26/17 06:59 18:59 Intake Total 420 Balance 420 - Medications Medications: Current Medications Acetaminophen (Tylenol 325mg Tab) 650 mg PO Q6H PRN PRN Reason: Pain, moderate (4-7) Last Admin: 02/25/17 22:21 Dose: 650 mg Amlodipine Besylate (Norvasc) 10 mg PO DAILY [facility] Last Admin: 02/25/17 09:42 Dose: 10 mg Atorvastatin Calcium (Lipitor) 20 mg PO HS [facility] Last Admin: 02/25/17 22:04 Dose: 20 mg Sodium Chloride (Sodium Chloride 0.9%) 1,000 mls @ 150 mls/hr IV .Q6H40M [facility] Last Admin: 02/25/17 09:43 Dose: 150 mls/hr Metronidazole (Flagyl) 500 mg in 100 mls @ 100 mls/hr IVPB Q8 [facility] PRN Reason: Protocol Last Admin: 02/26/17 06:27 Dose: 100 mls/hr Ceftriaxone Sodium (Rocephin 1 Gram Ivpb) 1 gm in 100 mls @ 100 mls/hr IVPB DAILY [facility] PRN Reason: Protocol Last Admin: 02/25/17 09:42 Dose: 100 mls/hr Pantoprazole Sodium (Protonix Ec Tab) 40 mg PO 0600,1600 [facility] Last Admin: 02/26/17 06:28 Dose: 40 mg Pneumococcal Polyvalent Vaccine (Pneumovax 23 Vaccine) 0.5 ml IM .ONCE ONE Stop: 02/27/17 10:01 Polyethylene Glycol (Miralax) 17 gm PO BID [facility] Tamsulosin HCl (Flomax) 0.4 mg PO DAILY [facility] Last Admin: 02/25/17 09:42 Dose: 0.4 mg - Labs Labs: 02/25/17 07:00 02/25/17 07:00 Assessment and Plan - Assessment and Plan (Free Text) Assessment: 66M with acute diverticulitis PMH colon polyp, GERD, CKD, HTN, BPH Plan: Patient is currently on a Liquid diet managed by GI GI PPX CMP monitoring consider outpatient colonoscopy after resolution of diverticulitis 6-8 weeks. c/w abx rocephin and flagyl Patient is hemodynamically stable. No surgical intervention at this time. Will follow closely discussed with Dr. Dragan Rubaclava DO PGY1 <Elfego Archibald - Last Filed: 02/26/17 19:45> Objective - Vital Signs/Intake and Output Vital Signs (last 24 hours): Temp Pulse Resp BP Pulse Ox 98.6 F 72 18 121/67 98 02/26/17 16:00 02/26/17 16:00 02/26/17 16:00 02/26/17 16:00 02/26/17 16:00 - Medications Medications: Current Medications Acetaminophen (Tylenol 325mg Tab) 650 mg PO Q6H PRN PRN Reason: Pain, moderate (4-7) Last Admin: 02/26/17 10:08 Dose: 650 mg Amlodipine Besylate (Norvasc) 10 mg PO DAILY [facility] Last Admin: 02/26/17 09:05 Dose: 10 mg Atorvastatin Calcium (Lipitor) 20 mg PO HS [facility] Last Admin: 02/25/17 22:04 Dose: 20 mg Sodium Chloride (Sodium Chloride 0.9%) 1,000 mls @ 150 mls/hr IV .Q6H40M [facility] Last Admin: 02/26/17 08:05 Dose: 150 mls/hr Metronidazole (Flagyl) 500 mg in 100 mls @ 100 mls/hr IVPB Q8 [facility] PRN Reason: Protocol Last Admin: 02/26/17 14:21 Dose: 100 mls/hr Ceftriaxone Sodium (Rocephin 1 Gram Ivpb) 1 gm in 100 mls @ 100 mls/hr IVPB DAILY [facility] PRN Reason: Protocol Last Admin: 02/26/17 09:05 Dose: 100 mls/hr Pantoprazole Sodium (Protonix Ec Tab) 40 mg PO 0600,1600 [facility] Last Admin: 02/26/17 16:26 Dose: 40 mg Pneumococcal Polyvalent Vaccine (Pneumovax 23 Vaccine) 0.5 ml IM .ONCE ONE Stop: 02/27/17 10:01 Polyethylene Glycol (Miralax) 17 gm PO BID [facility] Last Admin: 02/26/17 17:23 Dose: 17 gm Tamsulosin HCl (Flomax) 0.4 mg PO DAILY [facility] Last Admin: 02/26/17 09:05 Dose: 0.4 mg - Labs Labs: 02/26/17 09:30 02/26/17 09:30 Attending/Attestation - Attestation I have fully participated in the care of the patient.: Yes I have reviewed all pertinent clinical information, including history, physical exam and plan: Yes Notes (Text): 02/26/17 19:44 Pt with resolving diverticulitis No acute general intervention required at present f/u as out pt Colonoscopy as out pt.
[2017-02-26] MEDS: Sodium Chloride 0.9% 1,000 ML IV SCH (08:05)
[2017-02-26 08:56] VITALS: TEMP 98.6
[2017-02-26] MEDS: POLYETHYLENE GLYCOL 3350 17 GM/Dose PACKET PO SCH ×2 (09:05→17:23)
[2017-02-26] MEDS: cefTRIAXone 1 gm 1 GM/100 ML BAG IVPB SCH (09:05)
[2017-02-26 09:57] LABS: BASO # 0.01 K/mm3 (0.0-2.0); BASO % 0.2 % (0.0-3.0); EOS # 0.1 (0.0-0.7); EOS % 2.1 % (1.5-5.0); GRAN # 3.67 (1.4-6.5); HEMATOCRIT 31.3 % (42.0-52.0); LYMPH # 1.1 (1.2-3.4); LYMPH % 21.7 % (22.0-35.0); MEAN CELL VOLUME 88.9 fl (80.0-105.0); MEAN CORPUSCULAR HEMOGLOBIN 29.3 pg (25.0-35.0); MEAN CORPUSCULAR HGB CONC 32.9 g/dl (31.0-37.0); MEAN PLATELET VOLUME 10.1 fl (7.0-11.0); MONO # 0.3 (0.1-0.6); RED CELL DISTRIBUTION WIDTH 13.1 % (11.5-14.5); WHITE BLOOD COUNT 5.2 10^3/ul (4.5-11.0)
[2017-02-26 10:15] LABS: ALB/GLOB RATIO 1.3 (1.1-1.8); BILIRUBIN,TOTAL 0.4 mg/dL (0.2-1.3); CALCIUM 9.2 mg/dL (8.4-10.5); POTASSIUM 4.7 mmol/L (3.6-5.0); TOTAL PROTEIN 6.2 g/dL (5.8-8.3)
--- NOTE | 2017-02-26 14:44 | CP.PCM.PN ---
<TuyetWinona - Last Filed: 02/26/17 18:47> Subjective - Date & Time of Evaluation Date of Evaluation: 02/26/17 Time of Evaluation: 10:41 - Subjective Subjective: This patient was seen at bedside this morning resting comfortably. The patient reports very little pain and rates it a 3/10 in severity. Patient reports still being unable to have a bowel movement. The patient denies any fevers, chills, nausea, vomiting, lightheadedness, dizziness, chest pain, shortness of breath, numbness in any of the extremities or any other complaints. Objective - Vital Signs/Intake and Output Vital Signs (last 24 hours): Temp Pulse Resp BP Pulse Ox 98.6 F 61 20 119/66 98 02/26/17 06:00 02/26/17 06:00 02/26/17 06:00 02/26/17 09:05 02/26/17 06:00 Intake and Output: 02/26/17 02/26/17 06:59 18:59 Intake Total 420 Balance 420 - Medications Medications: Current Medications Acetaminophen (Tylenol 325mg Tab) 650 mg PO Q6H PRN PRN Reason: Pain, moderate (4-7) Last Admin: 02/26/17 10:08 Dose: 650 mg Amlodipine Besylate (Norvasc) 10 mg PO DAILY [facility] Last Admin: 02/26/17 09:05 Dose: 10 mg Atorvastatin Calcium (Lipitor) 20 mg PO HS [facility] Last Admin: 02/25/17 22:04 Dose: 20 mg Sodium Chloride (Sodium Chloride 0.9%) 1,000 mls @ 150 mls/hr IV .Q6H40M [facility] Last Admin: 02/26/17 08:05 Dose: 150 mls/hr Metronidazole (Flagyl) 500 mg in 100 mls @ 100 mls/hr IVPB Q8 [facility] PRN Reason: Protocol Last Admin: 02/26/17 14:21 Dose: 100 mls/hr Ceftriaxone Sodium (Rocephin 1 Gram Ivpb) 1 gm in 100 mls @ 100 mls/hr IVPB DAILY [facility] PRN Reason: Protocol Last Admin: 02/26/17 09:05 Dose: 100 mls/hr Pantoprazole Sodium (Protonix Ec Tab) 40 mg PO 0600,1600 [facility] Last Admin: 02/26/17 06:28 Dose: 40 mg Pneumococcal Polyvalent Vaccine (Pneumovax 23 Vaccine) 0.5 ml IM .ONCE ONE Stop: 02/27/17 10:01 Polyethylene Glycol (Miralax) 17 gm PO BID [facility] Last Admin: 02/26/17 09:05 Dose: 17 gm Tamsulosin HCl (Flomax) 0.4 mg PO DAILY [facility] Last Admin: 02/26/17 09:05 Dose: 0.4 mg - Labs Labs: 02/26/17 09:30 02/26/17 09:30 - Head Exam Head Exam: ATRAUMATIC, NORMAL INSPECTION, NORMOCEPHALIC - Eye Exam Eye Exam: EOMI, Normal appearance, PERRL. absent: Periorbital tenderness Pupil Exam: NORMAL ACCOMODATION, PERRL - ENT Exam ENT Exam: Mucous Membranes Moist, Normal Exam. absent: Mucous Membranes Dry - Neck Exam Neck Exam: Full ROM, Normal Inspection - Respiratory Exam Respiratory Exam: Clear to Ausculation Bilateral, NORMAL BREATHING PATTERN. absent: Accessory Muscle Use, Wheezes, Respiratory Distress - Cardiovascular Exam Cardiovascular Exam: REGULAR RHYTHM, RRR, +S1, +S2. absent: Bradycardia, Tachycardia, JVD - GI/Abdominal Exam GI & Abdominal Exam: Tenderness (Slight tenderness to palpation in the LLQ.), Normal Bowel Sounds. absent: Guarding, Rigid - Extremities Exam Extremities Exam: Full ROM, Normal Inspection - Back Exam Back Exam: NORMAL INSPECTION. absent: paraspinal tenderness - Neurological Exam Neurological Exam: Alert, Awake, CN II-XII Intact - Psychiatric Exam Psychiatric exam: Normal Affect, Normal Mood - Skin Skin Exam: Dry, Normal Color. absent: Pallor, Urticaria Assessment and Plan (1) Diverticulitis Assessment & Plan: Patient reporting a decrease in LLQ pain. C/w withf Flagyl and Rocephin Status: Acute - Assessment and Plan (Free Text) Assessment: GI ppx -C/w Protonix Hypertension -BP trending normotensive. -C/w WITH Norvasc Constipation -Still reporting no bowel movements. -C/w Miralax BPH -C/w Flomax <[facility],[place] - Last Filed: 03/01/17 10:29> Objective - Vital Signs/Intake and Output Vital Signs (last 24 hours): Temp Pulse Resp BP Pulse Ox 98.6 F 63 20 116/64 96 02/27/17 08:25 02/27/17 08:25 02/27/17 08:25 02/27/17 09:44 02/27/17 08:25 - Labs Labs: 02/27/17 05:50 02/27/17 05:50 Attending/Attestation - Attestation I have personally seen and examined this patient.: Yes I have fully participated in the care of the patient.: Yes I have reviewed all pertinent clinical information, including history, physical exam and plan: Yes Notes (Text): 03/01/17 10:28 Patient was seen and examined with medical concierge. Agreed with resident assessment and plan. Management plan was discussed in detail with patient Education was provided.
--- NOTE | 2017-02-26 15:23 | CP.PCM.PN ---
Subjective - Date & Time of Evaluation Date of Evaluation: 02/26/17 Time of Evaluation: 10:15 - Subjective Subjective: Seen and examined at the bedside earlier today, the chart was reviewed. The patient denies nausea, vomiting, fever or chills. Patient abdominal pain continues to improve, tolerating liquid diet. No reported bowel movements. Objective - Vital Signs/Intake and Output Vital Signs (last 24 hours): Temp Pulse Resp BP Pulse Ox 98.6 F 61 20 119/66 98 02/26/17 06:00 02/26/17 06:00 02/26/17 06:00 02/26/17 09:05 02/26/17 06:00 Intake and Output: 02/26/17 02/26/17 06:59 18:59 Intake Total 420 Balance 420 - Medications Medications: Current Medications Acetaminophen (Tylenol 325mg Tab) 650 mg PO Q6H PRN PRN Reason: Pain, moderate (4-7) Last Admin: 02/26/17 10:08 Dose: 650 mg Amlodipine Besylate (Norvasc) 10 mg PO DAILY [facility] Last Admin: 02/26/17 09:05 Dose: 10 mg Atorvastatin Calcium (Lipitor) 20 mg PO HS [facility] Last Admin: 02/25/17 22:04 Dose: 20 mg Sodium Chloride (Sodium Chloride 0.9%) 1,000 mls @ 150 mls/hr IV .Q6H40M [facility] Last Admin: 02/26/17 08:05 Dose: 150 mls/hr Metronidazole (Flagyl) 500 mg in 100 mls @ 100 mls/hr IVPB Q8 [facility] PRN Reason: Protocol Last Admin: 02/26/17 14:21 Dose: 100 mls/hr Ceftriaxone Sodium (Rocephin 1 Gram Ivpb) 1 gm in 100 mls @ 100 mls/hr IVPB DAILY [facility] PRN Reason: Protocol Last Admin: 02/26/17 09:05 Dose: 100 mls/hr Pantoprazole Sodium (Protonix Ec Tab) 40 mg PO 0600,1600 [facility] Last Admin: 02/26/17 06:28 Dose: 40 mg Pneumococcal Polyvalent Vaccine (Pneumovax 23 Vaccine) 0.5 ml IM .ONCE ONE Stop: 02/27/17 10:01 Polyethylene Glycol (Miralax) 17 gm PO BID [facility] Last Admin: 02/26/17 09:05 Dose: 17 gm Tamsulosin HCl (Flomax) 0.4 mg PO DAILY [facility] Last Admin: 02/26/17 09:05 Dose: 0.4 mg - Labs Labs: 02/26/17 09:30 02/26/17 09:30 - Constitutional Appears: No Acute Distress - Head Exam Head Exam: NORMOCEPHALIC - Eye Exam Eye Exam: Normal appearance. absent: Scleral icterus - ENT Exam ENT Exam: Mucous Membranes Moist - Neck Exam Neck Exam: Normal Inspection - Respiratory Exam Respiratory Exam: NORMAL BREATHING PATTERN. absent: Respiratory Distress - Cardiovascular Exam Cardiovascular Exam: +S1, +S2 - GI/Abdominal Exam GI & Abdominal Exam: Soft, Normal Bowel Sounds. absent: Guarding, Rebound - Extremities Exam Extremities Exam: Normal Capillary Refill. absent: Calf Tenderness, Pedal Edema - Neurological Exam Neurological Exam: Alert, Awake, Oriented x3 - Skin Skin Exam: Dry, Warm Assessment and Plan - Assessment and Plan (Free Text) Assessment: Assessment: Acute diverticulitis History of colon polyp Constipation GERD Chronic kidney disease Hypertension BPH Plan: Continue IV antibiotics: rocephin & flagyl advance full liquid diet Continue PPI Monitor electrolytes On MiraLAX twice a day Surgical evaluation Discuss elective outpatient colonoscopy after resolution of diverticulitis 6-8 weeks. Follow up in outpatient office. Discussed with Dr. Vasquez.
[2017-02-27] MEDS: Sodium Chloride 0.9% 1,000 ML IV SCH ×2 (01:22→09:59)
[2017-02-27] MEDS: metroNIDAZOLE IV 500 mg/100 ml 500 MG/100 ML BAG IVPB SCH (06:14)
[2017-02-27] MEDS: Pantoprazole 40 mg EC Tab PO SCH (06:14)
[2017-02-27 06:42] LABS: BASO # 0.03 K/mm3 (0.0-2.0); BASO % 0.5 % (0.0-3.0); EOS # 0.2 (0.0-0.7); EOS % 2.9 % (1.5-5.0); GRAN # 3.54 (1.4-6.5); GRAN % 63.6 % (50.0-68.0); HEMATOCRIT 30.3 % (42.0-52.0); LYMPH # 1.4 (1.2-3.4); LYMPH % 25.1 % (22.0-35.0); MEAN CELL VOLUME 87.6 fl (80.0-105.0); MEAN CORPUSCULAR HEMOGLOBIN 29.5 pg (25.0-35.0); MEAN CORPUSCULAR HGB CONC 33.7 g/dl (31.0-37.0); MEAN PLATELET VOLUME 9.6 fl (7.0-11.0); MONO # 0.4 (0.1-0.6); MONO % 7.9 % (1.0-6.0); WHITE BLOOD COUNT 5.6 10^3/ul (4.5-11.0)
[2017-02-27 07:00] LABS: ALB/GLOB RATIO 1.2 (1.1-1.8); BILIRUBIN,TOTAL 0.4 mg/dL (0.2-1.3); CALCIUM 9.1 mg/dL (8.4-10.5); POTASSIUM 4.4 mmol/L (3.6-5.0); TOTAL PROTEIN 5.9 g/dL (5.8-8.3)
[2017-02-27 08:25] VITALS: BP 116/64; PULSE 63; RESP 20; O2SAT 96
[2017-02-27] MEDS: POLYETHYLENE GLYCOL 3350 17 GM/Dose PACKET PO SCH (09:44)
[2017-02-27] MEDS: cefTRIAXone 1 gm 1 GM/100 ML BAG IVPB SCH (09:44)
[2017-02-27] MEDS ORDERED: Pneumococcal 23-Valent Vaccine IM ONE (10:00)
--- NOTE | 2017-02-27 10:46 | CP.PCM.PN ---
Subjective - Date & Time of Evaluation Date of Evaluation: 02/27/17 Time of Evaluation: 09:20 - Subjective Subjective: Seen and examined at the bedside this morning, patient tolerating soft low residual diet, he was seen by dietitian yesterday. He did have a soft formed bowel movement, denies any bleeding. Abdominal pain continues to improve, described more as soreness, No nausea, vomiting, or SOB or chest pain. No acute overnight events reported. Objective - Vital Signs/Intake and Output Vital Signs (last 24 hours): Temp Pulse Resp BP Pulse Ox 98.6 F 63 20 116/64 96 02/27/17 08:25 02/27/17 08:25 02/27/17 08:25 02/27/17 09:44 02/27/17 08:25 Intake and Output: 02/27/17 02/27/17 06:59 18:59 Intake Total 1600 Balance 1600 - Medications Medications: Current Medications Acetaminophen (Tylenol 325mg Tab) 650 mg PO Q6H PRN PRN Reason: Pain, moderate (4-7) Last Admin: 02/26/17 10:08 Dose: 650 mg Amlodipine Besylate (Norvasc) 10 mg PO DAILY [facility] Last Admin: 02/27/17 09:44 Dose: 10 mg Atorvastatin Calcium (Lipitor) 20 mg PO HS [facility] Last Admin: 02/26/17 21:06 Dose: 20 mg Sodium Chloride (Sodium Chloride 0.9%) 1,000 mls @ 150 mls/hr IV .Q6H40M [facility] Last Admin: 02/27/17 09:59 Dose: 150 mls/hr Metronidazole (Flagyl) 500 mg in 100 mls @ 100 mls/hr IVPB Q8 [facility] PRN Reason: Protocol Last Admin: 02/27/17 06:14 Dose: 100 mls/hr Ceftriaxone Sodium (Rocephin 1 Gram Ivpb) 1 gm in 100 mls @ 100 mls/hr IVPB DAILY [facility] PRN Reason: Protocol Last Admin: 02/27/17 09:44 Dose: 100 mls/hr Pantoprazole Sodium (Protonix Ec Tab) 40 mg PO 0600,1600 [facility] Last Admin: 02/27/17 06:14 Dose: 40 mg Polyethylene Glycol (Miralax) 17 gm PO BID [facility] Last Admin: 02/27/17 09:44 Dose: 17 gm Tamsulosin HCl (Flomax) 0.4 mg PO DAILY [facility] Last Admin: 02/27/17 09:44 Dose: 0.4 mg - Labs Labs: 02/27/17 05:50 02/27/17 05:50 - Constitutional Appears: No Acute Distress - Head Exam Head Exam: NORMOCEPHALIC - Eye Exam Eye Exam: Normal appearance. absent: Scleral icterus - ENT Exam ENT Exam: Mucous Membranes Moist - Neck Exam Neck Exam: Normal Inspection - Respiratory Exam Respiratory Exam: Clear to Ausculation Bilateral, NORMAL BREATHING PATTERN. absent: Respiratory Distress - Cardiovascular Exam Cardiovascular Exam: +S1, +S2 - GI/Abdominal Exam GI & Abdominal Exam: Soft, Normal Bowel Sounds. absent: Guarding, Tenderness, Rebound - Extremities Exam Extremities Exam: Normal Capillary Refill. absent: Calf Tenderness, Pedal Edema - Neurological Exam Neurological Exam: Alert, Awake, Oriented x3 Assessment and Plan - Assessment and Plan (Free Text) Assessment: Assessment: Resolving Acute diverticulitis History of colon polyp Constipation GERD Chronic kidney disease Hypertension BPH Plan: Continue IV antibiotics: rocephin & flagyl continue soft low residual diet Continue PPI Monitor electrolytes On MiraLAX twice a day Surgical evaluation Elective outpatient colonoscopy after resolution of diverticulitis 6-8 weeks. Follow up in outpatient office. Discussed with patient. From GI standpoint patient is doing well can be discharged home with oral antibiotics as per medical team. Seen and discussed with Dr. Carballo covering Dr. Vasquez.
--- NOTE | 2017-02-27 13:12 | CP.PCM.DIS ---
<TuyetQue - Last Filed: 02/28/17 15:22> Provider - Provider Date of Admission: 02/24/17 21:52 Attending physician: Viv Shine MD Primary care physician: NO PRIMARY CARE PROVIDER Time Spent in preparation of Discharge (in minutes): 40 Diagnosis - Discharge Diagnosis (1) Diverticulitis Status: Acute Hospital Course - Lab Results Lab Results: Micro Results 02/24/17 23:10 Blood Blood Culture - Preliminary NO GROWTH AFTER 48 HOURS 02/24/17 22:40 Blood Blood Culture - Preliminary NO GROWTH AFTER 48 HOURS Most Recent Lab Values WBC 5.6 10^3/ul (4.5-11.0) 02/27/17 05:50 RBC 3.46 10^6/uL (3.5-6.1) L 02/27/17 05:50 Hgb 10.2 g/dL (14.0-18.0) L 02/27/17 05:50 Hct 30.3 % (42.0-52.0) L 02/27/17 05:50 MCV 87.6 fl (80.0-105.0) 02/27/17 05:50 MCH 29.5 pg (25.0-35.0) 02/27/17 05:50 MCHC 33.7 g/dl (31.0-37.0) 02/27/17 05:50 RDW 13.0 % (11.5-14.5) 02/27/17 05:50 Plt Count 172 10^3/uL (120.0-450.0) 02/27/17 05:50 MPV 9.6 fl (7.0-11.0) 02/27/17 05:50 Gran % 63.6 % (50.0-68.0) 02/27/17 05:50 Lymph % (Auto) 25.1 % (22.0-35.0) 02/27/17 05:50 [place] % (Auto) 7.9 % (1.0-6.0) H 02/27/17 05:50 Eos % (Auto) 2.9 % (1.5-5.0) 02/27/17 05:50 Baso % (Auto) 0.5 % (0.0-3.0) 02/27/17 05:50 Gran # 3.54 (1.4-6.5) 02/27/17 05:50 Lymph # 1.4 (1.2-3.4) 02/27/17 05:50 [place] # 0.4 (0.1-0.6) 02/27/17 05:50 Eos # 0.2 (0.0-0.7) 02/27/17 05:50 Baso # 0.03 K/mm3 (0.0-2.0) 02/27/17 05:50 Sodium 141 mmol/L (132-148) 02/27/17 05:50 Potassium 4.4 mmol/L (3.6-5.0) 02/27/17 05:50 Chloride 110 mmol/L (98-107) H 02/27/17 05:50 Carbon Dioxide 25 mmol/L (21-33) 02/27/17 05:50 Anion Gap 10 (10-20) 02/27/17 05:50 BUN 16 mg/dL (7-21) 02/27/17 05:50 Creatinine 1.5 mg/dL (0.5-1.4) H 02/27/17 05:50 Est GFR ( Amer) 56 02/27/17 05:50 Est GFR (Non-Af Amer) 47 02/27/17 05:50 Random Glucose 102 mg/dL (70-110) 02/27/17 05:50 Calcium 9.1 mg/dL (8.4-10.5) 02/27/17 05:50 Total Bilirubin 0.4 mg/dL (0.2-1.3) 02/27/17 05:50 AST 25 U/L (15-59) 02/27/17 05:50 ALT 30 U/L (7-56) 02/27/17 05:50 Alkaline Phosphatase 103 U/L (38-133) 02/27/17 05:50 Total Protein 5.9 g/dL (5.8-8.3) 02/27/17 05:50 Albumin 3.2 g/dL (3.0-4.8) 02/27/17 05:50 Globulin 2.7 gm/dL 02/27/17 05:50 Albumin/Globulin Ratio 1.2 (1.1-1.8) 02/27/17 05:50 Triglycerides 82 mg/dL (35-160) 02/25/17 07:00 Cholesterol 145 mg/dL (130-200) 02/25/17 07:00 LDL Cholesterol Direct 78 mg/dL (0-129) 02/25/17 07:00 HDL Cholesterol 45 mg/dL (29-60) 02/25/17 07:00 Lipase 196 U/L (23-300) 02/24/17 15:26 Urine Color Yellow (YELLOW) 02/24/17 15:26 Urine Appearance Sl cloudy (CLEAR) 02/24/17 15:26 Urine pH 6.0 (4.7-8.0) 02/24/17 15:26 Ur Specific [place] 1.020 (1.005-1.035) 02/24/17 15:26 Urine Protein 30 mg/dL (<30 mg/dL) H 02/24/17 15:26 Urine Glucose (UA) Negative mg/dL (NEGATIVE) 02/24/17 15:26 Urine Ketones Negative mg/dL (NEGATIVE) 02/24/17 15:26 Urine Blood Trace-lysed (NEGATIVE) H 02/24/17 15:26 Urine Nitrate Negative (NEGATIVE) 02/24/17 15:26 Urine Bilirubin Negative (NEGATIVE) 02/24/17 15:26 Urine Urobilinogen 0.2 E.U./dL (<1 E.U./dL) 02/24/17 15:26 Ur Leukocyte Esterase Negative Veronica/uL (NEGATIVE) 02/24/17 15:26 Urine RBC 0 - 2 /hpf (0-2) 02/24/17 15:26 Urine WBC 0 - 2 /hpf (0-6) 02/24/17 15:26 Ur Epithelial Cells 0 - 2 /hpf (0-5) 02/24/17 15:26 Hyaline Casts 0 - 2 /hpf 02/24/17 15:26 - Hospital Course Hospital Course: This is a 66 yr. old male with a past medical history of gastric ulcers, GERD, HTN, HLD, CKD, Psoriasis, Arthritis, and BPH that came in complaining of LLQ abdominal pain for one week. He also stated that he had been constipated for 2 days and that he had 2 episodes of nausea and vomiting for 2 days in conjunction with the abdominal pain. A CT was done on 02/25 that showed diverticulitis and he was given Levaquin and Flagyl in the E.D. On 02/25 he was seen by Dr. Vasquez and he recommended to continue IV antibiotics (Rocephin and Flagyl), start a clear liquid diet as tolerated, continue PPI, a surgical evaluation and an elective outpatient colonoscopy. He was also seen by Dr. Archibadl who recommended GI consult, continue IV antibiotics, and pain management. On 02/26 his diet was advanced to soft diet and patient was reporting a decrease in pain. On 02/27 patient was still tolerating the soft diet without any problems and was discharged with Ciprofloxacin and Flagyl. The patient is to follow up with Dr. Vasquez and his PMD within one week. Discharge Exam - Head Exam Head Exam: NORMOCEPHALIC - Eye Exam Eye Exam: EOMI, Normal appearance, PERRL Pupil Exam: NORMAL ACCOMODATION, PERRL. absent: Irregular - ENT Exam ENT Exam: Mucous Membranes Moist - Respiratory Exam Respiratory Exam: Clear to PA & Lateral, NORMAL BREATHING PATTERN, UNREMARKABLE. absent: Accessory Muscle Use, Rhonchi, Wheezes - Cardiovascular Exam Cardiovascular Exam: REGULAR RHYTHM, RRR, +S1, +S2. absent: Rubs - GI/Abdominal Exam GI & Abdominal Exam: Normal Bowel Sounds, Soft, Unremarkable. absent: Rebound, Rigid - Back Exam Back exam: NORMAL INSPECTION, paraspinal tenderness - Neurological Exam Neurological exam: Alert, CN II-XII Intact, Oriented x3, Reflexes Normal - Psychiatric Exam Psychiatric exam: Normal Affect, Normal Mood - Skin Skin Exam: Dry, Intact, Normal Color Discharge Plan - Discharge Medications Prescriptions: Ciprofloxacin HCl [Cipro] 500 mg PO BID #14 tablet Metronidazole [Flagyl] 500 mg PO TID #21 tablet - Follow Up Plan Condition: STABLE Disposition: HOME/ ROUTINE Instructions: Diverticulitis (GEN), Acute Abdominal Pain (DC), Acute Abdominal Pain (GEN) Additional Instructions: 1. Follow up with GI DR. Vasquez in 1 week. 2.Need outpatient colonoscopy. 3. Follow up with PMD in 1 week. 4. Patient should return to an E.D. for any new or worsening symptoms. Referrals: PCP,NO [Primary Care Provider] - Vicky Vasquez MD [Medical Doctor] - <Viv Shine - Last Filed: 02/28/17 17:07> Provider - Provider Date of Admission: 02/24/17 21:52 Attending physician: Viv Shine MD Primary care physician: NO PRIMARY CARE PROVIDER Hospital Course - Lab Results Lab Results: Micro Results 02/24/17 23:10 Blood Blood Culture - Preliminary NO GROWTH AFTER 3 DAYS 02/24/17 22:40 Blood Blood Culture - Preliminary NO GROWTH AFTER 3 DAYS Most Recent Lab Values WBC 5.6 10^3/ul (4.5-11.0) 02/27/17 05:50 RBC 3.46 10^6/uL (3.5-6.1) L 02/27/17 05:50 Hgb 10.2 g/dL (14.0-18.0) L 02/27/17 05:50 Hct 30.3 % (42.0-52.0) L 02/27/17 05:50 MCV 87.6 fl (80.0-105.0) 02/27/17 05:50 MCH 29.5 pg (25.0-35.0) 02/27/17 05:50 MCHC 33.7 g/dl (31.0-37.0) 02/27/17 05:50 RDW 13.0 % (11.5-14.5) 02/27/17 05:50 Plt Count 172 10^3/uL (120.0-450.0) 02/27/17 05:50 MPV 9.6 fl (7.0-11.0) 02/27/17 05:50 Gran % 63.6 % (50.0-68.0) 02/27/17 05:50 Lymph % (Auto) 25.1 % (22.0-35.0) 02/27/17 05:50 [place] % (Auto) 7.9 % (1.0-6.0) H 02/27/17 05:50 Eos % (Auto) 2.9 % (1.5-5.0) 02/27/17 05:50 Baso % (Auto) 0.5 % (0.0-3.0) 02/27/17 05:50 Gran # 3.54 (1.4-6.5) 02/27/17 05:50 Lymph # 1.4 (1.2-3.4) 02/27/17 05:50 [place] # 0.4 (0.1-0.6) 02/27/17 05:50 Eos # 0.2 (0.0-0.7) 02/27/17 05:50 Baso # 0.03 K/mm3 (0.0-2.0) 02/27/17 05:50 Sodium 141 mmol/L (132-148) 02/27/17 05:50 Potassium 4.4 mmol/L (3.6-5.0) 02/27/17 05:50 Chloride 110 mmol/L (98-107) H 02/27/17 05:50 Carbon Dioxide 25 mmol/L (21-33) 02/27/17 05:50 Anion Gap 10 (10-20) 02/27/17 05:50 BUN 16 mg/dL (7-21) 02/27/17 05:50 Creatinine 1.5 mg/dL (0.5-1.4) H 02/27/17 05:50 Est GFR ( Amer) 56 02/27/17 05:50 Est GFR (Non-Af Amer) 47 02/27/17 05:50 Random Glucose 102 mg/dL (70-110) 02/27/17 05:50 Calcium 9.1 mg/dL (8.4-10.5) 02/27/17 05:50 Total Bilirubin 0.4 mg/dL (0.2-1.3) 02/27/17 05:50 AST 25 U/L (15-59) 02/27/17 05:50 ALT 30 U/L (7-56) 02/27/17 05:50 Alkaline Phosphatase 103 U/L (38-133) 02/27/17 05:50 Total Protein 5.9 g/dL (5.8-8.3) 02/27/17 05:50 Albumin 3.2 g/dL (3.0-4.8) 02/27/17 05:50 Globulin 2.7 gm/dL 02/27/17 05:50 Albumin/Globulin Ratio 1.2 (1.1-1.8) 02/27/17 05:50 Triglycerides 82 mg/dL (35-160) 02/25/17 07:00 Cholesterol 145 mg/dL (130-200) 02/25/17 07:00 LDL Cholesterol Direct 78 mg/dL (0-129) 02/25/17 07:00 HDL Cholesterol 45 mg/dL (29-60) 02/25/17 07:00 Lipase 196 U/L (23-300) 02/24/17 15:26 Urine Color Yellow (YELLOW) 02/24/17 15:26 Urine Appearance Sl cloudy (CLEAR) 02/24/17 15:26 Urine pH 6.0 (4.7-8.0) 02/24/17 15:26 Ur Specific [place] 1.020 (1.005-1.035) 02/24/17 15:26 Urine Protein 30 mg/dL (<30 mg/dL) H 02/24/17 15:26 Urine Glucose (UA) Negative mg/dL (NEGATIVE) 02/24/17 15:26 Urine Ketones Negative mg/dL (NEGATIVE) 02/24/17 15:26 Urine Blood Trace-lysed (NEGATIVE) H 02/24/17 15:26 Urine Nitrate Negative (NEGATIVE) 02/24/17 15:26 Urine Bilirubin Negative (NEGATIVE) 02/24/17 15:26 Urine Urobilinogen 0.2 E.U./dL (<1 E.U./dL) 02/24/17 15:26 Ur Leukocyte Esterase Negative Veronica/uL (NEGATIVE) 02/24/17 15:26 Urine RBC 0 - 2 /hpf (0-2) 02/24/17 15:26 Urine WBC 0 - 2 /hpf (0-6) 02/24/17 15:26 Ur Epithelial Cells 0 - 2 /hpf (0-5) 02/24/17 15:26 Hyaline Casts 0 - 2 /hpf 02/24/17 15:26 Attending/Attestation - Attestation I have personally seen and examined this patient.: Yes I have fully participated in the care of the patient.: Yes I have reviewed all pertinent clinical information, including history, physical exam and plan: Yes Notes (Text): 02/28/17 17:03 attending note; Patient seen and examined with resident. Patient is a 66-year-old male admitted with acute sigmoid diverticulitis. Treated with IV Rocephin and Flagyl. Currently tolerating diet. Patient will follow-up with GI Dr. Vasquez for outpatient colonoscopy. Diagnosis; Acute diverticulitis anemia Chronic kidney disease 02/28/17 17:06 02/28/17 17:06
== END 2017-02-27 11:49 | disposition home or self-care (01) | DRG 392 ==
LOC: ED 13:35 → EROBSV 14:45 → ERH 21:52 → OBSVTOIN 21:52 → ERH 23:11 → 3RSO 23:26
PROVIDERS: ADMIT Internal Medicine; ATTEND Internal Medicine
DX: K57.32 Diverticulitis of large intestine without perforation or abscess without bleeding (principal); I12.9 Hypertensive chronic kidney disease with stage 1 through stage 4 chronic kidney disease, or unspecified chronic kidney disease; N18.9 Chronic kidney disease, unspecified; K21.9 Gastro-esophageal reflux disease without esophagitis; D63.1 Anemia in chronic kidney disease; E78.5 Hyperlipidemia, unspecified; N40.1 Benign prostatic hyperplasia with lower urinary tract symptoms; R33.8 Other retention of urine; K59.00 Constipation, unspecified; M19.90 Unspecified osteoarthritis, unspecified site; L40.9 Psoriasis, unspecified; F17.210 Nicotine dependence, cigarettes, uncomplicated; Z87.11 Personal history of peptic ulcer disease; Z88.6 Allergy status to analgesic agent; Z86.010 Personal history of colon polyps

== ENCOUNTER 2017-05-09 07:57 | Day surgery (SDC) | payer MEDICARE ==
[2017-05-09 08:57] VITALS: BMI 21.1
[2017-05-09] MEDS ORDERED: Propofol 10 mg/ml Inj (20 ML) ONE (10:26)
[2017-05-09] MEDS ORDERED: Sodium Chloride 0.9% 1,000 ML IV SCH (11:15)
[2017-05-09 11:23] VITALS: TEMP 97.6
[2017-05-09 11:45] VITALS: O2SAT 97
[2017-05-09 12:00] VITALS: BP 118/68; PULSE 61; RESP 18
== END 2017-05-09 12:37 | disposition home or self-care (01) ==
LOC: ENDO 07:57
PROVIDERS: ATTEND Internal Medicine Gastroenterology
DX: Z12.11 Encounter for screening for malignant neoplasm of colon (principal); K62.1 Rectal polyp; K57.30 Diverticulosis of large intestine without perforation or abscess without bleeding; K64.8 Other hemorrhoids; I10 Essential (primary) hypertension
CPT/HCPCS: 45380; 88305; J2704; J7040 ×2

== ENCOUNTER 2017-09-08 08:12 | Emergency (ER) | payer MEDICARE ==
[2017-09-08 08:26] VITALS: BP 184/88; PULSE 62; RESP 16; TEMP 98.9; O2SAT 98; BMI 23.3
[2017-09-08] MEDS ORDERED: Sodium Chloride 0.9% 500 ML IV STA (08:31)
--- NOTE | 2017-09-08 08:35 | ED PDOC ---
Arrival/HPI - General Chief Complaint: Abdominal Pain Time Seen by Provider: 09/08/17 08:19 Historian: Patient - History of Present Illness Time/Duration: Other (2 weeks) Symptom Onset: Gradual Symptom Course: Worsening Quality: Aching Severity Level: Moderate Activities at Onset: Rest Associated Symptoms (Text): 09/08/17 08:33 Patient complains of a two-week history of worsening lower abdominal pain. He also has urinary frequency, but no dysuria or hematuria. No nausea vomiting or diarrhea. No fever or chills. No travel or exposure. No radiation of the pain. There is chronic unchanged lower back pain. He had a CT scan of the abdomen and pelvis in January of last year which showed diverticulitis. He had an ultrasound of the abdomen in March of last year which was unremarkable. He had a colonoscopy in April of last year which showed diverticulosis with mild internal hemorrhoids and 2 polyps removed. Past Medical History - Infectious Disease Hx of Infectious Diseases: None - Tetanus Immunization Tetanus Immunization: Unknown - Cardiac Hx Hypertension: Yes Hx Pacemaker: No - Pulmonary Hx Respiratory Disorders: No - Neurological Hx Paralysis: No - HEENT Hx HEENT Disorder: No - Renal Hx Renal Disorder: No - Endocrine/Metabolic Hx Endocrine Disorders: No - Hematological/Oncological Hx Blood Transfusions: No Hx Blood Transfusion Reaction: No - Integumentary Hx Psoriasis: Yes - Musculoskeletal/Rheumatological Hx Musculoskeletal Disorders: No - Gastrointestinal Hx Gastrointestinal Disorders: Yes Hx Gastroesophageal Reflux: Yes - Genitourinary/Gynecological Hx Genitourinary Disorders: Yes Hx Prostate Problems: Yes - Psychiatric Hx Emotional Abuse: No Hx Physical Abuse: No Hx Substance Use: No - Past Surgical History Past Surgical History: No Previous - Anesthesia Hx Anesthesia Reactions: No Hx Malignant Hyperthermia: No - Suicidal Assessment Feels Threatened In Home Enviroment: No Family/Social History - Physician Review Nursing Documentation Reviewed: Yes Family/Social History: Unknown Family HX Smoking Status: Light Smoker < 10 Cigarettes Daily Hx Alcohol Use: Yes (Occasionally.) Hx Substance Use: No Hx Substance Use Treatment: No Allergies/Home Meds Allergies/Adverse Reactions: Allergies aspirin Adverse Reaction (Mild, Verified 04/24/16 11:08) NAUSEA Home Medications: Home Meds Medication Instructions Recorded Confirmed Omeprazole 20 mg PO DAILY 05/16/16 09/08/17 amLODIPine [Norvasc] 5 mg PO DAILY 08/22/16 09/08/17 Atorvastatin [Lipitor] 20 mg PO HS 02/24/17 09/08/17 Metoprolol Succinate [Toprol Xl] 25 mg PO DAILY 05/09/17 09/08/17 Tamsulosin [Flomax] 0.4 mg PO DAILY 05/09/17 09/08/17 Review of Systems - Physician Review All systems were reviewed & negative as marked: Yes - Review of Systems Constitutional: Normal Respiratory: Normal Cardiovascular: Normal Gastrointestinal: Abdominal Pain. absent: Constipation, Diarrhea, Nausea, Vomiting, Anorexia Genitourinary Male: Frequency. absent: Dysuria, Hematuria Neurological: absent: Headache, Dizziness, Focal Weakness Physical Exam Vital Signs Temp Pulse Resp BP Pulse Ox 09/08/17 08:24 98.9 F 62 16 184/88 H 98 Temperature: Afebrile Blood Pressure: Hypertensive Pulse: Regular Respiratory Rate: Normal Appearance: Positive for: Well-Appearing, Non-Toxic, Uncomfortable Pain Distress: Mild Mental Status: Positive for: Alert and Oriented X 3 - Systems Exam Head: Present: Atraumatic, Normocephalic Pupils: Present: PERRL Extroacular Muscles: Present: EOMI Conjunctiva: Present: Normal Mouth: Present: Moist Mucous Membranes Pharnyx: No: ERYTHEMA, EXUDATE, TONSILS ENLARGED Neck: Present: Normal Range of Motion Respiratory/Chest: Present: Clear to Auscultation, Good Air Exchange, Decreased Breath Sounds. No: Respiratory Distress, Accessory Muscle Use Cardiovascular: Present: Regular Rate and Rhythm, Normal S1, S2. No: Murmurs Abdomen: Present: Tenderness (Mild right lower quadrant suprapubic and left lower quadrant tenderness with no guarding and no rebound), Normal Bowel Sounds. No: Distention, Peritoneal Signs, Rebound, Guarding Back: No: CVA Tenderness Upper Extremity: Present: Normal Inspection. No: Cyanosis, Edema Lower Extremity: Present: Normal Inspection. No: Edema Neurological: Present: GCS=15, CN II-XII Intact, Speech Normal, Motor Func Grossly Intact Skin: Present: Warm, Dry, Normal Color. No: Rashes Psychiatric: Present: Alert, Oriented x 3, Normal Insight, Normal Concentration Medical Decision Making ED Course and Treatment: 09/08/17 11:20 CT abdomen and pelvis: Creator : Ori Knox MD COMPARISON: 02/24/2017 FINDINGS: LOWER THORAX: Unremarkable. LIVER: Unremarkable. No gross lesion or ductal dilatation. GALLBLADDER AND BILE DUCTS: Small stone or calcification in the gallbladder fundus unchanged PANCREAS: Unremarkable. No gross lesion or ductal dilatation. SPLEEN: Unremarkable. ADRENALS: Unremarkable. No mass. KIDNEYS AND URETERS: Unremarkable. No hydronephrosis. No solid mass. VASCULATURE: Unremarkable. No aortic aneurysm. BOWEL: There is severe diverticulosis of the sigmoid colon without evidence of acute diverticulitis. APPENDIX: Unremarkable. Normal appendix. PERITONEUM: Unremarkable. No free fluid. No free air. LYMPH NODES: Unremarkable. No enlarged lymph nodes. BLADDER: Unremarkable. REPRODUCTIVE: Unremarkable. BONES: No acute fracture. OTHER FINDINGS: None. IMPRESSION: There is severe diverticulosis of the sigmoid colon without evidence of acute diverticulitis. 09/08/17 11:24 Pain has improved. Patient will be discharged home to follow-up with PMD and decal cutter. Follow up in ER as needed. Prescription for Cipro and Ultram. - Lab Interpretations Lab Results: 09/08/17 08:47 09/08/17 08:47 Lab Results 09/08/17 08:47: Sodium 143, Potassium 4.4, Chloride 110 H, Carbon Dioxide 24, Anion Gap 14, BUN 29 H, Creatinine 1.8 H, Est GFR ( Amer) 46, Est GFR ( Non-Af Amer) 38, Random Glucose 114 H, Calcium 10.2, Total Bilirubin 0.3, AST 27 , ALT 21, Alkaline Phosphatase 113, Total Protein 7.3, Albumin 4.0, Globulin 3.3 , Albumin/Globulin Ratio 1.2, Lipase 139 09/08/17 08:47: Urine Color Yellow, Urine Appearance Clear, Urine pH 6.0, Ur Specific Onyx 1.015, Urine Protein Trace H, Urine Glucose (UA) Negative, Urine Ketones Negative, Urine Blood Trace-intact H, Urine Nitrate Negative, Urine Bilirubin Negative, Urine Urobilinogen 0.2, Ur Leukocyte Esterase Negative , Urine RBC 1 - 3, Urine WBC 0 - 2, Ur Epithelial Cells None, Urine Bacteria Few 09/08/17 08:47: WBC 6.2, RBC 3.68, Hgb 11.3 L, Hct 34.0 L, MCV 92.4 D, MCH 30.7 , MCHC 33.2, RDW 13.4, Plt Count 198, MPV 10.3, Gran % 58.6, Lymph % (Auto) 29.4 , Terrell % (Auto) 8.1 H, Eos % (Auto) 3.6, Baso % (Auto) 0.3, Gran # 3.61, Lymph # (Auto) 1.8, Terrell # (Auto) 0.5, Eos # (Auto) 0.2, Baso # (Auto) 0.02 - RAD Interpretation Radiology Orders: 09/08/17 08:31 ABD & PELVIS W/O PO OR IV CONT [CT] Stat CT scan of the abdomen and pelvis is read by the radiologist shows no acute findings. - Medication Orders Current Medication Orders: Discontinued Medications Sodium Chloride (Sodium Chloride 0.9%) 500 mls @ 1,000 mls/hr IV .Q30M STA Stop: 09/08/17 09:00 Last Admin: 09/08/17 08:50 Dose: 1,000 mls/hr eMAR Start Stop Document 09/08/17 08:50 HP (Rec: 09/08/17 08:50 HP [id number]) Intravenous Solution Start Date 09/08/17 Start Time 08:50 End Date 09/08/17 End time 09:50 Total Infusion Time 60 Ketorolac Tromethamine (Toradol) 15 mg IVP STAT STA Stop: 09/08/17 08:32 Last Admin: 09/08/17 08:51 Dose: 15 mg MAR Pain Assessment Document 09/08/17 08:51 HP (Rec: 09/08/17 08:51 HP [id number]) Pain Reassessment Is this a pain reassessment? No IVP Administration Document 09/08/17 08:51 HP (Rec: 09/08/17 08:51 HP [id number]) Charges for Administration # of IVP Administrations 1 Pantoprazole Sodium (Protonix Inj) 40 mg IVP STAT STA Stop: 09/08/17 08:32 Last Admin: 09/08/17 08:50 Dose: 40 mg IVP Administration Document 09/08/17 08:50 HP (Rec: 09/08/17 08:50 HP [id number]) Charges for Administration # of IVP Administrations 1 Disposition/Present on Arrival - Present on Arrival Any Indicators Present on Arrival: No History of DVT/PE: No History of Uncontrolled Diabetes: No Urinary Catheter: No History of Decub. Ulcer: No History Surgical Site Infection Following: None - Disposition Have Diagnosis and Disposition been Completed?: Yes Diagnosis: Abdominal pain Disposition: HOME/ ROUTINE Disposition Time: 11:25 Patient Plan: Discharge Condition: GOOD Discharge Instructions (ExitCare): Acute Abdomen (Belly Pain), Adult (DC) Prescriptions: Ciprofloxacin [Cipro] 500 mg PO BID #14 tab Tramadol HCl [Ultram] 50 mg PO Q6 PRN #14 tab PRN Reason: Pain Referrals: Vicky Vasquez MD [Medical Doctor] - Follow up with primary Forms: [employer] ([place]ish)
[2017-09-08 08:51] LABS: BASO # 0.02 K/mm3 (0.0-2.0); BASO % 0.3 % (0.0-3.0); EOS # 0.2 (0.0-0.7); EOS % 3.6 % (1.5-5.0); GRAN # 3.61 (1.4-6.5); GRAN % 58.6 % (50.0-68.0); HEMOGLOBIN 11.3 g/dL (14.0-18.0); LYMPH # 1.8 (1.2-3.4); LYMPH % 29.4 % (22.0-35.0); MEAN CELL VOLUME 92.4 fl (80.0-105.0); MEAN CORPUSCULAR HEMOGLOBIN 30.7 pg (25.0-35.0); MEAN CORPUSCULAR HGB CONC 33.2 g/dl (31.0-37.0); MEAN PLATELET VOLUME 10.3 fl (7.0-11.0); MONO # 0.5 (0.1-0.6); MONO % 8.1 % (1.0-6.0); RBC 3.68 10^6/uL (3.5-6.1); RED CELL DISTRIBUTION WIDTH 13.4 % (11.5-14.5); WHITE BLOOD COUNT 6.2 10^3/ul (4.5-11.0)
[2017-09-08 08:58] LABS: URINE BILIRUBIN NEGATIVE (NEGATIVE); URINE BLOOD TRACE-INTACT (NEGATIVE); URINE GLUCOSE (UA) NEGATIVE (NEGATIVE); URINE LEUKOCYTE ESTERASE NEGATIVE Leu/uL (NEGATIVE); URINE PROTEIN TRACE mg/dL (<30 mg/dL); URINE UROBILINOGEN 0.2 E.U./dL (<1 E.U./dL)
[2017-09-08 08:59] LABS: URINE APPEARANCE CLEAR (CLEAR); URINE COLOR YELLOW (YELLOW)
[2017-09-08 09:01] LABS: ALB/GLOB RATIO 1.2 (1.1-1.8); CALCIUM 10.2 mg/dL (8.4-10.5)
[2017-09-08 09:06] LABS: URINE BACTERIA FEW (NEG); URINE WBC 0 - 2 /hpf (0-6)
--- NOTE | 2017-09-08 11:19 | CT ---
PROCEDURE: CT Abdomen and Pelvis without intravenous contrast HISTORY: lower pain COMPARISON: 02/24/2017 TECHNIQUE: Without contrast. Contrast Dose: Radiation dose: Total exam DLP = 210 mGy-cm. This CT exam was performed using one or more of the following dose reduction techniques: Automated exposure control, adjustment of the mA and/or kV according to patient size, and/or use of iterative reconstruction technique. FINDINGS: LOWER THORAX: Unremarkable. LIVER: Unremarkable. No gross lesion or ductal dilatation. GALLBLADDER AND BILE DUCTS: Small stone or calcification in the gallbladder fundus unchanged PANCREAS: Unremarkable. No gross lesion or ductal dilatation. SPLEEN: Unremarkable. ADRENALS: Unremarkable. No mass. KIDNEYS AND URETERS: Unremarkable. No hydronephrosis. No solid mass. VASCULATURE: Unremarkable. No aortic aneurysm. BOWEL: There is severe diverticulosis of the sigmoid colon without evidence of acute diverticulitis. APPENDIX: Unremarkable. Normal appendix. PERITONEUM: Unremarkable. No free fluid. No free air. LYMPH NODES: Unremarkable. No enlarged lymph nodes. BLADDER: Unremarkable. REPRODUCTIVE: Unremarkable. BONES: No acute fracture. OTHER FINDINGS: None. IMPRESSION: There is severe diverticulosis of the sigmoid colon without evidence of acute diverticulitis.
== END 2017-09-08 11:33 | disposition home or self-care (01) ==
LOC: ED 08:12
DX: R10.9 Unspecified abdominal pain (principal); I10 Essential (primary) hypertension; K21.9 Gastro-esophageal reflux disease without esophagitis; F17.210 Nicotine dependence, cigarettes, uncomplicated
CPT/HCPCS: 74176; 80053; 81001; 83690; 85025; 87086; 96361; 96374; 96375; 99283; C9113; J1885; J7040

== ENCOUNTER 2018-07-02 08:57 | Outpatient (CLI) | payer MEDICARE | END 2018-07-02 08:58 | disposition home or self-care (01) | LOC: RAD 08:57 ==